=== PATIENT | male | born 1955 | race Caucasian/White ===

== ENCOUNTER → 2019-02-14 12:50 | Outpatient (BNVA) | payer OTHER, SELFPAY | PROVIDERS: PCP Anesthesiology; Visit Provider Anesthesiology | DX: G89.29 Other chronic pain (principal); M54.2 Cervicalgia; M25.511 Pain in right shoulder; M25.512 Pain in left shoulder; M54.5 Low back pain; M79.651 Pain in right thigh; Z79.891 Long term (current) use of opiate analgesic | CPT/HCPCS: 99214 ==

== ENCOUNTER → 2019-02-27 13:22 | Outpatient (BNVA) | payer OTHER, SELFPAY | PROVIDERS: Family Provider Family Medicine; PCP Family Medicine; Visit Provider Nurse Practitioner Psychiatric/Mental Health | DX: F90.2 Attention-deficit hyperactivity disorder, combined type (principal); S06.9X9S Unspecified intracranial injury with loss of consciousness of unspecified duration, sequela; G31.84 Mild cognitive impairment of uncertain or unknown etiology | CPT/HCPCS: 99214; 99215 ==

== ENCOUNTER 2019-02-28 08:00 | Day surgery (SDC) | payer OTHER, SELFPAY ==
--- NOTE | 2019-02-27 11:36 | ECG_ITS ---
Measurements Intervals [place] Rate: 62 P: 56 ME: 189 QRS: -23 QRSD: 113 T: 45 QT: 412 QTc: 421 SINUS RHYTHM WITH FREQUENT SUPRAVENTRICULAR PREMATURE COMPLEXES BORDERLINE LEFT AXIS DEVIATION [QRS AXIS < -20] MODERATE INTRAVENTRICULAR CONDUCTION DELAY [110+ ms QRS DURATION] VOLTAGE CRITERIA FOR LVH [MEETS CRITERIA IN ONE OF: R(aVL), S(V1), R(V5), R(V5/V6) +S(V1)] Compared to ECG 11/23/2018 11:38:59 Intraventricular conduction delay now present Sinus arrhythmia no longer present Electronically Signed On 02-27-2019 20:13:06 SYSTEMS SUPPORT OFFICER by Tushar Campo M.D. [id number]
--- NOTE | 2019-02-27 12:11 | P.ANES_ITS ---
Pre-Anesthetic Assessment Pre-Anesthetic Assessment: Height/Weight: Weight 95.708 kg Preop Diagnosis: CTS on Left, Left ulner nerve entrapment Proposed Proced ure: Operation Date: 02/28/19 12:55 Proposed Procedures p Ulnar Nerve Release(Left) - Michelet Neely MD s Median Nerve Release CTR(Left) - Michelet Neely MD Social: Social History: No alcohol and No tobacco Exam: Pre-Anes Outpt Exam: alert, oriented x 3, clear to auscultation bilaterally and regular rate & rhythm Airway: Submandibular: WNL Cervical ROM: WNL MP: 3 Pulmonary: Pulmonary: COPD and SOB CV/HEM: CV/HEM: Anemia, CAD and HTN Comments: CABG 2017, PTCA 2018. No CP/SOB since : : Chronic renal Insufficiency Hepatic: Hepatic: None reported GI: GI: None reported Metabolic: Metabolic: DM Musc/skel: Musc/skel: Lower Back Pain and OA/DJD Anesthetic Plan: ASA status: III Anesthesia: Anesthesia Evaluation and General Risk of > 500 ml blood loss (7ml/kg in children): No PFSH Anesthesia PFSH: Medical History (Updated 02/26/19 @ 12:59 by Jayne Muhammad RN) Cervical spine pain (Chronic) Chronic low back pain (Chronic) Long-term use of high-risk medication (Chronic) Pain, joint, shoulder, left (Chronic) Social History (Updated 02/14/19 @ 13:22 by Karishma Levine LPN) Smoking and tobacco status: never smoked Second hand smoke exposure: No Smoking risk assessment/counseling performed?: No Alcohol intake: former Caregiver/support person: Yes () Household members: spouse Marital status: Data Anesthesia Cardiac Studies: No Data to Display
[2019-02-28] VITALS (8 sets, daily range): BP systolic 133–167; BP diastolic 67–82; PULSE 66–78; RESP 16–18; TEMP 36.3–36.6; O2SAT 95–100
--- NOTE | 2019-02-28 07:10 | PM.HPUD ---
H&P update H&P Update: DATE OF SURGERY/PROCEDURE: 02/28/19 DATE H&P PERFORMED: 02/11/19 H&P UPDATE INFORMATION: H&P completed within last 30 days, No changes to prior documentation and H&P to be scanned into chart PREOP DIAGNOSIS: Ulnar Nerve entrapment at the elbow/median nerve entrapment at the wrist. PLANNED PROCEDURE: Operation Date: 02/28/19 11:45 Proposed Procedures open release of Ulnar Nerve at the elbow on the Left open release of Median Nerve at left wrist Full H&P Perinent History: Medical/Surgical History: Medical History (Updated 02/27/19 @ 13:52 by Gely Serrato) Attention deficit hyperactivity disorder (ADHD), predominantly hyperactive-impulsive or combined type (Acute) Cervical spine pain (Chronic) Chronic low back pain (Chronic) Long-term use of high-risk medication (Chronic) Mild neurocognitive disorder due to traumatic brain injury (Acute) Pain, joint, shoulder, left (Chronic) Family History: Family History (Updated 02/14/19 @ 13:20 by Karishma Levine LPN) Father Diabetes Mother Diabetes CAD (coronary artery disease) Lung disease Brother Diabetes Sister Diabetes Other Chronic kidney disease (CKD) Hypertension Social History: Social History Smoking and tobacco status: never smoked Second hand smoke exposure: No Smoking risk assessment/counseling performed?: No Alcohol intake: former Caregiver/support person: Yes () Household members: spouse Marital status:
[2019-02-28 08:42] LABS: Glucose Point of Care 94 mg/dL (70-110)
[2019-02-28] MEDS: sodium chloride 0.9% 1,000 ML 30 ML IV (08:47)
[2019-02-28 09:05] LABS: Anion Gap 14.9 (5-19); Blood Urea Nitrogen 41 mg/dL (8-23); Calcium 9.7 mg/Dl (8.8-10.2); Carbon Dioxide 25 mmol/L (22-29); Chloride 101 mmol/L (98-107); Glomerular Filtration Rate 31.9 mL/min (90-130); Glucose 104 mg/dL (74-106); Potassium 3.9 mmol/L (3.5-5.1); Sodium 137 mmol/L (136-145)
--- NOTE | 2019-02-28 10:23 | P.OP_ITS ---
Operative Report Date of procedure: 02/28/19 Pre-op Diagnosis: Ulnar nerve entrapment at the left elbow. Post-op diagnosis: same Procedure Done: Open release of the ulnar nerve at the left elbow, with subcutaneous transposition. Pathology: none sent Surgeon: Michelet Neely Anesthesia: General Estimated blood loss (mL): 10 Condition: stable Disposition: PACU Brief History: The patient is a 63-year-old male with symptomatic, electrodiagnostically confirmed ulnar nerve entrapment at the left elbow and median nerve entrapment at the left wrist. Nerve conduction studies suggested severe entrapment. Symptoms progressed with conservative management. He had previously undergone ulnar nerve decompression at the right elbow, with good results. After review of the diagnostic and treatment options with the risks/potential benefits/rationale for each, the patient requested to proceed with surgical intervention for left ulnar nerve decompression at the elbow and left median nerve release at the wrist under the same anesthesia. Procedure: After routine preoperative evaluation and informed consent were obtained, the patient was taken to the Operating Room and placed under general anesthesia by Anesthesia personnel. He was positioned supine on the operating table with the left arm extended on an arm board. The left upper extremity was scrubbed with Betadine and prepped with DuraPrep from the fingertips to the axilla. A sterile stockinette, sterile towels and sterile drapes were applied. The area about the left elbow was exposed, and the planned curvilinear incision was marked with a sterile skin marker. Ioban surgical barrier was applied. The proposed incision site was infiltrated with 1% Xylocaine with Epinephrine. The skin incision was carried down into the subcutaneous tissues. Dissection was carried down through the superficial fatty layer and, subsequently, through the deeper fatty layer. Self-retaining retractors were placed. The ulnar nerve was identified as it entered and exited the ulnar groove. The thickened ligament overlying the nerve was divided. There was mild epineural fibrosis with adhesions extending along the nerve beyond the ulnar groove. Medial epicondyle prominence was also noted. The nerve was decompressed as it extended into the proximal forearm musculature, and as it exited from the distal arm musculature. The nerve was palpated along its visualized course, with no residual impingement or adhesions identified. Vessel loops were placed about the nerve to facilitate manipulation of the nerve during the decompression, while care was taken to av oid undue traction or stress on the nerve during the procedure. Once the nerve was felt to be well-decompressed, the left upper extremity was manipulated at the elbow through a full range of motion. Nerve displacement from the ulnar groove was noted with flexion at the elbow, and gross tension on the nerve was apparent during full elbow flexion if the nerve was maintained within the ulnar groove. The decision was made to transpose the nerve into the subcutaneous space. The nerve course was transposed into a position anterior to the medial epicondyle within the subcutaneous space. A loose sling of subcutaneous fat was created to maintain the nerve in the desired location. The ligament was closed over the ulnar groove to minimize recurrent entrapment of the nerve at that site. The elbow was placed through a full range of motion, with no tension or displacement of the nerve noted in the transposed location. The site was copiously irrigated with sterile saline and antibiotic irrigation. Hemostasis was obtained with bipolar electrocautery. Closure of the deep dermis was performed with 2-0 Vicryl Plus simple interrupted sutures. Attention was then turned to the left wrist. (See separate operative report for details.) Final closure was performed with 3-0 Vicryl Plus running subcuticular closure following completion of the median nerve decompression at the left wrist. Placement of Steri-Strips and a sterile dressing was also performed at that time. The patient was fit in an elbow splint and a sling prior to transfer onto the Recovery Room cart. He was awakened from general anesthesia without incident. The patient tolerated the procedure well. COMPLICATIONS: There were no known complications. COUNTS: All sponge, needle, and instrument counts were correct at the completion of the procedure.
--- NOTE | 2019-02-28 10:53 | P.OP_ITS ---
Operative Report Date of procedure: 02/28/19 Pre-op Diagnosis: Median nerve entrapment at the left wrist Post-op diagnosis: same Procedure Done: Open release of the median nerve at the left wrist. Pathology: none sent Surgeon: Michelet Neely Anesthesia: General Estimated blood loss: Minimal Complications: None Condition: stable Disposition: PACU Brief History: The patient is a 63-year-old male with symptomatic, electrodiagnostically confirmed median nerve entrapment at the left wrist and ulnar nerve entrapment at the left elbow. Conservative management failed to provide adequate lasting symptom relief. After review of the diagnostic and treatment options with the risks/potential benefits/rationale for each, the patient requested to proceed with open release of the median nerve at the left wrist under the same anesthesia as open release of the ulnar nerve at the left elbow. Procedure: After routine preoperative evaluation and informed consent were obtained, the patient was taken to the Operating Room and positioned supine on the operating table. He was placed under general anesthesia by Anesthesia personnel, and left ulnar nerve decompression at the elbow was performed. (See separate operative report for details.) Attention was then turned to the left wrist. An opening was fashioned in the sterile stockinette over the palmar asp ect of the left hand. The proposed skin incision was marked with a sterile skin marker, beginning near the wrist crease and extending distally along portions of a palmar crease to the mid palm. Ioban surgical barrier was applied. The proposed incision site was infiltrated with 1% Xylocaine with Epinephrine. A skin incision was made with a sharp knife and carried down into the subcutaneous tissues. The thickened transverse carpal ligament was identified and divided over the course of the median nerve in the palm. The nerve was directly visualized as the ligament was divided. Decompression was extended distally until the palmar fat pad was encountered. Proximally, the decompression was extended above the wrist crease utilizing fine Metzenbaum scissors. Decompression was verified to be adequate for a distance of greater than 2 centimeters proximal to the wrist crease. Mild epineural adhesions were addressed with limited epineurolysis. At the completion of the decompression, there was no evidence of residual impingement or tethering of the median nerve at the surgical site. The wound was then copiously irrigated with sterile saline and antibiotic irrigation. Hemostasis was ensured with the bipolar electrocautery. Wound closure was performed as a single layer utilizing 4-0 Nylon in a simple interrupted fashion. Antibiotic ointment was placed along the incision line. A bulky hand dressing was fashioned utilizing Kerlix fluffs, a Kerlix wrap, and an MANISH/elastic bandage. The patient was awakened from general anesthesia, without incident. He was transferred onto the transport cart and taken to the postanesthesia care unit for routine postoperative monitoring and management. The patient tolerated the procedure well. COUNTS: All sponge, needle and instrument counts were correct at the completion of the procedure.
[2019-02-28] MEDS: fentaNYL 50 mcg/mL INJ 2mL 25 MCG IVP (11:37)
--- NOTE | 2019-02-28 12:42 | PM.OP2 ---
 Brief Operative Note: Date of procedure: 02/28/19 Pre-op diagnosis: Ulnar nerve entrapment at left elbow, Median nerve entrapment at left wrist Post-op diagnosis: same Procedure Done: Open release of ulnar nerve at left elbow, with subQ transposition. Open release of median nerve at left wrist. Surgeon: Michelet Neely Estimated blood loss (mL): 10 Complications: None. Post-op Plan: PACU, then home per Ambulatory Surgery protocol Condition: stable Disposition: PACU Coding Level of Care Code Acute Credit Department Manager for Vickey Esquivel
[2019-02-28] MEDS: neomycin-poly-bacitracin oint 28 gm 1 APPLIC TOPICAL (13:13)
--- NOTE | 2019-02-28 14:54 | SUR.PHASEI ---
PT SLEEPY WITH GOOD RESP EFFORT, OCC SHORT EPISODE OF APNEA, PT AWAKES SELF AND CONTINUES WITH NORMAL RESP , PT AWAKES TO VOICE, MONIOTR SR WITH OCC UNIFOCAL PVC. BILAT TEDS SCDS ON IV PATENT
--- NOTE | 2019-02-28 14:57 | SUR.PHASEI ---
PT MORE ALERT , DENEIS PAIN AND NAUSEATED PT ON RA TRIAL. VSS
[2019-02-28] MEDS: HYDROcodone-acetaminophen 10-325 mg Tablet 1 TAB PO (15:28)
== END 2019-02-28 16:15 | disposition home or self-care (01) ==
LOC: OR 03-01 06:03
PROVIDERS: Anesthesiology; Family Provider Family Medicine; PCP Family Medicine; Visit Provider Specialist
PROC: (CPT 64718; principal; 2019-02-28 09:20)
PROC: (CPT 64721; 2019-02-28 09:20)
DX: G56.02 Carpal tunnel syndrome, left upper limb (principal); G56.22 Lesion of ulnar nerve, left upper limb; E78.5 Hyperlipidemia, unspecified; E11.9 Type 2 diabetes mellitus without complications; I10 Essential (primary) hypertension; Z86.73 Personal history of transient ischemic attack (TIA), and cerebral infarction without residual deficits; M06.9 Rheumatoid arthritis, unspecified; Z82.49 Family history of ischemic heart disease and other diseases of the circulatory system; Z83.3 Family history of diabetes mellitus
CPT/HCPCS: 64718; 64721; 12345; 36415; 36416; 80048; 82962; 93005; 96365; 96374; J0690; J2001; J2704; J3010; J3490; J7030

== ENCOUNTER → 2019-04-10 11:16 | Outpatient (BNVA) | payer OTHER, SELFPAY | PROVIDERS: Family Provider Family Medicine; PCP Family Medicine; Visit Provider Nurse Practitioner Psychiatric/Mental Health | DX: F90.2 Attention-deficit hyperactivity disorder, combined type (principal); S06.9X9D Unspecified intracranial injury with loss of consciousness of unspecified duration, subsequent encounter; G31.84 Mild cognitive impairment of uncertain or unknown etiology | CPT/HCPCS: 99214 ==

== ENCOUNTER → 2019-04-11 12:50 | Outpatient (BNVA) | payer OTHER, SELFPAY | PROVIDERS: Family Provider Family Medicine; PCP Family Medicine; Visit Provider Anesthesiology | DX: G89.29 Other chronic pain (principal); M54.2 Cervicalgia; M25.512 Pain in left shoulder; M25.511 Pain in right shoulder; M54.5 Low back pain; Z79.891 Long term (current) use of opiate analgesic | CPT/HCPCS: 99214 ==

== ENCOUNTER → 2019-07-04 08:15 | Outpatient (BNVA) | payer OTHER, SELFPAY | PROVIDERS: Family Provider Family Medicine; PCP Family Medicine; Visit Provider Nurse Practitioner Psychiatric/Mental Health | DX: F90.2 Attention-deficit hyperactivity disorder, combined type (principal); S06.9X9D Unspecified intracranial injury with loss of consciousness of unspecified duration, subsequent encounter; G31.84 Mild cognitive impairment of uncertain or unknown etiology | CPT/HCPCS: 99214 ==

== ENCOUNTER → 2019-07-15 09:31 | Outpatient (BNVA) | payer OTHER, SELFPAY | PROVIDERS: Family Provider Family Medicine; PCP Family Medicine; Referring Provider Family Medicine; Visit Provider Specialist | DX: M25.512 Pain in left shoulder (principal) | CPT/HCPCS: 73030 ==

== ENCOUNTER 2019-07-23 07:44 | Outpatient (CLI) | payer OTHER, SELFPAY ==
--- NOTE | 2019-07-23 08:00 | MR_ITS ---
WS: [id number] MRI LEFT SHOULDER HISTORY: M25.512 Pain in left shoulder COMPARISON: 07/15/2019 TECHNIQUE: Multiplanar sequences of the shoulder joint are submitted. Advanced degenerative changes at the AC joint. Bone and soft tissue hypertrophy. 6 mm osteophyte from the distal inferior clavicle with mild encroachment upon the supraspinatus muscle. There is an addit ional osteophyte from the distal undersurface of the acromion measuring 4 mm with encroachment on the anterior supraspinatus tendon. Small amount of fluid in the subacromial and subdeltoid bursa. Insertion site tear involving the distal supraspinatus tendon. There is additional marked tendinopath y over the distal supraspinatus. There is associated partial tear along the articular surface of the distal supraspinatus tendon. Partial tear involving the articular surface of the distal subscapularis tendon. This tear is very close to the insertion site of the subscapularis tendon. Abnormal biceps t endon resides within the bicipital groove. There is increased signal and thinning of the tendon. Larg e osteophytes at the humeral head encroach upon the biceps tendon and the subscapularis tendon. No mu scle edema. There is mild atrophy of the supraspinatus. No labral tears are appreciated. Osteophytes from the glenoid causing mild narrowing and degenerative changes at the glenohumeral joint. MR/MR shoulder LT wo con* [id number] IMPRESSION: 1. Severe AC joint arthritis with osteophyte encroachment upon the supraspinat us muscle. Osteophytes from the distal undersurface of the clavicle and the dis art undersurface of the acromion. 2. Tendinopathy in the distal supraspinatus and subscapularis tendons. 3. Insertion site tear supraspinatus tendon with an adjacent partial articular surface tear. 4. Partial tear articular surface distal subscapularis tendon. 5. Abnormal signal in the biceps tendon. Suspect partial tear just proximal to the bicipital groove. 6. Osteophytes from the humeral head encroaching upon the biceps tendon in the subscapularis tendon. 7. Glenohumeral joint arthritis.
== END 2019-07-23 07:45 | disposition home or self-care (01) ==
LOC: RADSHAW 07:47
PROVIDERS: PCP Family Medicine; Visit Provider Specialist
DX: M25.512 Pain in left shoulder (principal); M25.712 Osteophyte, left shoulder; M19.012 Primary osteoarthritis, left shoulder; S46.912A Strain of unspecified muscle, fascia and tendon at shoulder and upper arm level, left arm, initial encounter; X58.XXXA Exposure to other specified factors, initial encounter
CPT/HCPCS: 73221

== ENCOUNTER → 2019-08-14 07:42 | Outpatient (BNVA) | payer OTHER, SELFPAY | PROVIDERS: PCP Family Medicine; Visit Provider Nurse Practitioner Psychiatric/Mental Health | DX: F90.2 Attention-deficit hyperactivity disorder, combined type (principal); S06.9X9D Unspecified intracranial injury with loss of consciousness of unspecified duration, subsequent encounter; G31.84 Mild cognitive impairment of uncertain or unknown etiology | CPT/HCPCS: 99214 ==

== ENCOUNTER 2019-08-21 14:01 | Outpatient (RCR) | payer OTHER, SELFPAY | END 2019-09-13 23:59 | disposition home or self-care (01) | LOC: SPT 14:01 | PROVIDERS: PCP Family Medicine; Referring Provider Specialist; Visit Provider Specialist | DX: M19.012 Primary osteoarthritis, left shoulder (principal) | CPT/HCPCS: 97110; 97162 ==

== ENCOUNTER 2019-08-29 09:01 | Outpatient (CLI) | payer OTHER, SELFPAY ==
--- NOTE | 2019-08-29 09:07 | MR_ITS ---
WS: [id number] MRI HEAD WITH CONTRAST TECHNIQUE: Sagittal T1, T2 axial, T2 axial FLAIR, axial susceptibility weighted imaging, axial diffus ion weighted images, and coronal T2 images were obtained. Pre and post-T1 axial and post T1 coronal i mages. ADC and FSPGR images. CLINICAL INFORMATION: TBI COMPARISON: None. FINDINGS: No evidence restricted diffusion to suggest acute ischemia. Ventricular system and basal cisterns are patent. Mild small vessel changes. Moderate parenchymal volume loss. Normal posterior fossa. Normal vascular flow voids at the skull base. No extra-axial fluid collections. No evidence of mass or mass effect. No abnormal gadolinium enhancement. No enhancing intracranial lesions. Normal optic chiasm and pituit jeff infundibulum. Normal dural venous sinuses. Moderate symmetric atrophy involving the temporal lobe s and hippocampal formations. Paranasal sinuses and mastoid air cells well aerated. MR/MR head wo/w con [id number] IMPRESSION: 1. No evidence of restricted diffusion to suggest acute ischemia. 2. Mild small vessel changes with moderate parenchymal volume loss. 3. Moderate symmetric atrophy involving the temporal lobes and hippocampal for mations. 4. No abnormal gadolinium enhancement. 5. No hemosiderin on susceptibly weighted images.
[2019-08-29 09:51] LABS: Blood Urea Nitrogen 29 mg/dL (8-23); Glomerular Filtration Rate 40.5 mL/min (90-130)
== END 2019-08-29 09:02 | disposition home or self-care (01) ==
LOC: RADSHAW 09:03
PROVIDERS: PCP Family Medicine; Visit Provider Family Medicine
DX: S06.9X0A Unspecified intracranial injury without loss of consciousness, initial encounter (principal); X58.XXXA Exposure to other specified factors, initial encounter; G31.9 Degenerative disease of nervous system, unspecified
CPT/HCPCS: 70553; 82565; 84520; A9579

== ENCOUNTER 2019-09-14 06:00 | Outpatient (RCR) | payer OTHER, SELFPAY | END 2019-10-14 23:59 | disposition home or self-care (01) | LOC: SPT 06:00 | PROVIDERS: PCP Family Medicine; Referring Provider Specialist; Visit Provider Specialist | DX: M19.012 Primary osteoarthritis, left shoulder (principal) | CPT/HCPCS: 97110 ==

== ENCOUNTER → 2019-09-18 10:11 | Outpatient (BNVA) | payer OTHER, SELFPAY | PROVIDERS: PCP Family Medicine; Visit Provider Anesthesiology | DX: G89.29 Other chronic pain (principal); M54.42 Lumbago with sciatica, left side; M54.41 Lumbago with sciatica, right side; M54.2 Cervicalgia; M19.112 Post-traumatic osteoarthritis, left shoulder; Z79.891 Long term (current) use of opiate analgesic | CPT/HCPCS: 99214 ==

== ENCOUNTER → 2019-10-09 08:34 | Outpatient (BNVA) | payer OTHER, SELFPAY | PROVIDERS: PCP Family Medicine; Visit Provider Nurse Practitioner Psychiatric/Mental Health | DX: F90.2 Attention-deficit hyperactivity disorder, combined type (principal); S06.9X9D Unspecified intracranial injury with loss of consciousness of unspecified duration, subsequent encounter; G31.84 Mild cognitive impairment of uncertain or unknown etiology | CPT/HCPCS: 99214 ==

== ENCOUNTER → 2019-10-23 10:27 | Outpatient (BNVA) | payer OTHER, SELFPAY | PROVIDERS: PCP Family Medicine; Referring Provider Family Medicine; Visit Provider Specialist | DX: I50.22 Chronic systolic (congestive) heart failure (principal); S06.9X9D Unspecified intracranial injury with loss of consciousness of unspecified duration, subsequent encounter; X58.XXXD Exposure to other specified factors, subsequent encounter; F90.2 Attention-deficit hyperactivity disorder, combined type; G43.711 Chronic migraine without aura, intractable, with status migrainosus | CPT/HCPCS: 96116; 99205 ==

== ENCOUNTER → 2019-11-06 07:40 | Outpatient (BNVA) | payer OTHER, SELFPAY | PROVIDERS: PCP Family Medicine; Visit Provider Psychiatry & Neurology Psychiatry | DX: F90.2 Attention-deficit hyperactivity disorder, combined type (principal); S06.9X9D Unspecified intracranial injury with loss of consciousness of unspecified duration, subsequent encounter; G31.84 Mild cognitive impairment of uncertain or unknown etiology | CPT/HCPCS: 99214 ==

== ENCOUNTER → 2019-11-20 10:40 | Outpatient (BNVA) | payer OTHER, SELFPAY | PROVIDERS: PCP Family Medicine; Visit Provider Anesthesiology | DX: G89.29 Other chronic pain (principal); M54.5 Low back pain; M54.2 Cervicalgia; M25.512 Pain in left shoulder; Z79.891 Long term (current) use of opiate analgesic | CPT/HCPCS: 99214 ==

== ENCOUNTER → 2019-12-11 12:47 | Outpatient (BNVA) | payer OTHER, SELFPAY | PROVIDERS: PCP Family Medicine; Visit Provider Psychiatry & Neurology Psychiatry | DX: F33.1 Major depressive disorder, recurrent, moderate (principal); G31.84 Mild cognitive impairment of uncertain or unknown etiology; S06.9X9D Unspecified intracranial injury with loss of consciousness of unspecified duration, subsequent encounter; F41.1 Generalized anxiety disorder | CPT/HCPCS: 99213 ==

== ENCOUNTER → 2020-01-13 12:07 | Outpatient (BNVA) | payer OTHER, SELFPAY | PROVIDERS: PCP Family Medicine; Visit Provider Internal Medicine Cardiovascular Disease | DX: I50.43 Acute on chronic combined systolic (congestive) and diastolic (congestive) heart failure (principal); R06.02 Shortness of breath | CPT/HCPCS: 80048; 83880 ==

== ENCOUNTER → 2020-01-15 10:14 | Outpatient (BNVA) | payer OTHER, SELFPAY | PROVIDERS: PCP Family Medicine; Visit Provider Psychiatry & Neurology Psychiatry | DX: F33.1 Major depressive disorder, recurrent, moderate; S06.9X9S Unspecified intracranial injury with loss of consciousness of unspecified duration, sequela; V89.2XXS Person injured in unspecified motor-vehicle accident, traffic, sequela; F90.2 Attention-deficit hyperactivity disorder, combined type | CPT/HCPCS: 99213; 99214 ==

== ENCOUNTER → 2020-02-05 10:45 | Outpatient (BNVA) | payer OTHER, SELFPAY | PROVIDERS: PCP Family Medicine; Visit Provider Anesthesiology | DX: M54.5 Low back pain (principal); G89.29 Other chronic pain; M54.2 Cervicalgia; Z79.899 Other long term (current) drug therapy; M25.512 Pain in left shoulder; Z79.891 Long term (current) use of opiate analgesic | CPT/HCPCS: 99214 ==

== ENCOUNTER → 2020-04-22 12:46 | Outpatient (BNVA) | payer OTHER, SELFPAY | PROVIDERS: PCP Family Medicine; Visit Provider Nurse Practitioner | DX: G89.29 Other chronic pain (principal); M54.5 Low back pain; M19.112 Post-traumatic osteoarthritis, left shoulder; M54.2 Cervicalgia; S06.9X9D Unspecified intracranial injury with loss of consciousness of unspecified duration, subsequent encounter; X58.XXXD Exposure to other specified factors, subsequent encounter; Z79.899 Other long term (current) drug therapy; Z79.891 Long term (current) use of opiate analgesic | CPT/HCPCS: 99215 ==

== ENCOUNTER → 2020-05-20 14:23 | Outpatient (BNVA) | payer OTHER, SELFPAY | PROVIDERS: PCP Family Medicine; Visit Provider Nurse Practitioner | DX: G89.29 Other chronic pain (principal); M54.5 Low back pain; M54.2 Cervicalgia; M19.112 Post-traumatic osteoarthritis, left shoulder | CPT/HCPCS: 99213; 99214 ==

== ENCOUNTER → 2020-06-04 09:45 | Outpatient (BNVA) | payer OTHER, SELFPAY | PROVIDERS: PCP Family Medicine; Visit Provider Anesthesiology | DX: G89.29 Other chronic pain (principal); M25.512 Pain in left shoulder; Z79.891 Long term (current) use of opiate analgesic | CPT/HCPCS: 20610; 77002; J1030; J3490 ==

== ENCOUNTER → 2020-06-17 13:33 | Outpatient (BNVA) | payer OTHER, SELFPAY | PROVIDERS: PCP Family Medicine; Visit Provider Specialist | DX: G31.84 Mild cognitive impairment of uncertain or unknown etiology (principal); R55 Syncope and collapse; I50.22 Chronic systolic (congestive) heart failure; F33.1 Major depressive disorder, recurrent, moderate; F60.5 Obsessive-compulsive personality disorder; G43.711 Chronic migraine without aura, intractable, with status migrainosus | CPT/HCPCS: 96116; 99215 ==

== ENCOUNTER → 2020-07-16 12:38 | Outpatient (BNVA) | payer OTHER, SELFPAY | PROVIDERS: PCP Family Medicine; Visit Provider Nurse Practitioner | DX: G89.29 Other chronic pain (principal); M54.5 Low back pain; M54.2 Cervicalgia; G43.711 Chronic migraine without aura, intractable, with status migrainosus; G31.84 Mild cognitive impairment of uncertain or unknown etiology; M19.112 Post-traumatic osteoarthritis, left shoulder; Z79.891 Long term (current) use of opiate analgesic | CPT/HCPCS: 99215 ==

== ENCOUNTER 2020-08-07 21:23 | Emergency (ER) | payer OTHER, SELFPAY ==
[2020-08-07 21:58] VITALS: BP 134/73; PULSE 50; RESP 16; TEMP 36.6; O2SAT 99; BMI 28.7
--- NOTE | 2020-08-07 23:08 | ECG_ITS ---
[facility] Test Date: 2020-08-07 Pat Name: Santy Murphy Department: Room: Gender: Male Buccaro: : 1955 Requested By: Malena Latif Order Number: [id number] Vandana MD: April Andres M.D. Measurements Intervals [place] Rate: 55 P: 68 PA: 201 QRS: -25 QRSD: 106 T: 17 QT: 427 QTc: 409 Interpretive Statements SINUS BRADYCARDIA WITH OCCASIONAL VENTRICULAR PREMATURE COMPLEXES WITH OCCASIONAL SUPRAVENTRICULAR PREMATURE COMPLEXES BORDERLINE LEFT AXIS DEVIATION [QRS AXIS < -20] VOLTAGE CRITERIA FOR LVH [MEETS CRITERIA IN ONE OF: R(aVL), S(V1), R(V5), R(V5/V6)+S(V1)] INTERPRETATION BASED ON A DEFAULT AGE OF 40 YEARS Compared to ECG 02/27/2019 11:48:56 Ventricular premature complex(es) now present Sinus rhythm no longer present Intraventricular conduction delay no longer present Electronically Signed On 08-09-2020 9:32:41 CDT by April Andres M.D. [id number]
--- NOTE | 2020-08-07 23:08 | XRR_ITS ---
PROCEDURE INFORMATION: Exam: XR Chest Exam date and time: 08/07/2020 11:08 PM Age: 65 years old Clinical indication: Other: Chest pain and low back pain; Prior surgery; Surgery date: 6+ months; Surgery type: Quadruple bypass; Patient HX: C/O chest pain and trouble breathing; Fatigue. C/O low back pain; Additional info: SOB TECHNIQUE: Imaging protocol: XR of the chest. Views: 1 view. COMPARISON: CR Chest 1 [place] [id number] 11/16/2017 7:17 PM FINDINGS: Lungs: Emphysematous changes suspected. Pleural spaces: Unremarkable. No pleural effusion. No pneumothorax. Heart/Mediastinum: Cardiomegaly. Bones/joints: Sternotomy wires. Chronic left posterior 5th rib fracture suspected. XR/XR chest 1V portable [id number] IMPRESSION: 1. Negative for infiltrate. 2. Sternotomy wires. 3. Cardiomegaly. 4. Emphysematous changes suspected. 5. Chronic left posterior 5th rib fracture suspected.
--- NOTE | 2020-08-07 23:18 | PC.NURSE ---
EKG taken and given to Malena Latif
--- NOTE | 2020-08-07 23:44 | W.ED.SKABFB ---
HPI - Skin/Abscess/Foreign Bdy General: Chief complaint: Skin/Abscess/Foreign Body Stated complaint: burst abcess, fungal infection Time Seen by Provider: 08/07/20 22:41 Source: patient and family () Mode of arrival: ambulatory Limitations: no limitations History of Present Illness: HPI narrative: Patient is a 65-year-old male with history of HTN, CHF, CAD, CKD, ADHD, TBI, COPD, DM, chronic back pain bradycardia, and hyperlipidemia here along with his for an initial complaint of new skin lesions. 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 Patient states he received several cuts/scrapes to his arms and forearms that he states have turned into sores. He states they first formed fluid-filled papules that patient then poked with a needle and drained. He states when lesions first started he felt very fatigued but this has improved. states she googled lesions and is concerned for sporotrichosis. Patient during history taking is very pleasant but very loquacious. He is often tangential with his speech thus difficult to follow and pin down a complaint. At some point he mentioned being treated at [facility] recently. When asked about this he states he went there 2 days ago for similar complaints (although later states he had chest pains at the time too) but was unsatisfied with their care and left. I tried to redirect patient several times and ask him about his chest pain and essentially he tells me he always has pain and that he is not really concerned with his discomfort now. He states he has felt a little short of breath. Does have a history of COPD-does not wear oxygen. He states he did receive first COVID vaccine 2 days ago. complaint: lesion Onset (ago): week(s) Tetanus up to date: yes Location: [facility], E, L hand, R hand and LLE Relieving factors: none Exacerbating factors: none Context: other (exposure to genny lopez) Associated symptoms: Deny chills, fever(s), nausea or vomiting Treatments prior to arrival: none Review of Systems Const: Reports: fatigue (resolved ); Denies: fever(s), chills, body aches, change in appetite, change in weight, malaise or night sweats Eyes: Denies: change in vision, blurry vision, photophobia, floaters or seeing flashes ENMT: Denies: throat pain or odynophagia Card: Reports: chest pain, irregular heart rhythm (chronic) and dyspnea on exertion (chronic); Denies: palpitations, edema, lightheadedness, syncope, pre-syncope, leg pain with exertion or acrocyanosis Resp: Reports: dyspnea and productive cough (chronic); Denies: non-productive cough, wheezing, stridor, hemoptysis or chest congestion GI: Denies: abdominal pain, nausea, vomiting or diarrhea Musc: Denies: neck pain, back pain, extremity pain, extremity swelling, joint pain or joint swelling Skin/Breast: Reports: sores Neuro: Denies: headache(s), numbness in extremities, weakness in extremities, sensory changes or dizziness PFSH ED PFSH: Medical History Acute on chronic combined systolic and diastolic CHF, NYHA class 2 Atherosclerosis of coronary artery of [place] heart without angina pectoris Attention deficit hyperactivity disorder (ADHD), predominantly hyperactive-impulsive or combined type Benign essential hypertension with target blood pressure below 140/90 CAD (coronary artery disease) Cervical spine pain CHF (congestive heart failure) Chronic low back pain Chronic systolic heart failure COPD (chronic obstructive pulmonary disease) Dyslipidemia Dyslipidemia (high LDL; low HDL) Dysrhythmias Encounter for long-term opiate analgesic use Hypertension Long-term use of high-risk medication Mild neurocognitive disorder due to traumatic brain injury Near syncope Pain, joint, shoulder, left Traumatic brain injury Ventricular arrhythmia Surgical History History of carpal tunnel release Left, 02/28/2019 S/P CABG (coronary artery bypass graft) S/P decompression of ulnar nerve at elbow 11/26/18 Dr. Neely-right elbow 02/28/2019 - left elbow S/P hemorrhoidectomy S/P inguinal hernia repair S/P PTCA (percutaneous transluminal coronary angioplasty) S/P tonsillectomy and adenoidectomy Status post lumbar laminectomy Family History Father Diabetes Mother Diabetes CAD (coronary artery disease) Lung disease Brother Diabetes Sister Diabetes Grandmother Dementia Other Chronic kidney disease (CKD) Hypertension Denies family history of Clotting disorder Suicide Anesthesia complication Bleeding disorder Cancer Stroke Social History Smoking and tobacco status: never smoked Second hand smoke exposure: No Alcohol intake: former Caregiver/support person: Yes Marital status: History of recent travel: No Physical Exam Const: COMMON NORMALS: no acute distress, patient oriented x3, no limitations, healthy appearing and alert GENERAL APPEARANCE: cooperative ORIENTATION/CONSCIOUSNESS: Yes awake, Yes oriented to person, Yes oriented to place and Yes oriented to time HENMT: COMMON NORMALS: normocephalic and atraumatic HEAD & SCALP: normocephalic and atraumatic Resp: COMMON NORMALS: normal respiratory effort and clear to auscultation bilaterally AUSCULTATION: clear to auscultation bilaterally Cardio: COMMON NORMALS: regular rhythm RATE: bradycardic RHYTHM: regular rhythm GI: COMMON NORMALS: Normal to inspection, nondistended, normoactive bowel sounds present, Soft to palpation, non-tender, No hepatosplenomegaly present and no masses PALPATION: Yes Soft to palpation and Yes No hepatosplenomegaly present Extremity: COMMON NORMALS: no clubbing, cyanosis or edema and no pedal edema Neuro: CHRIS COMA SCALE: document GCS findings Chris coma scale eye opening: Spontaneous [place] coma scale verbal response: Orientated Chris coma scale motor response: Obey commands Chris coma scale total score: 15 COMMON NORMALS: patient oriented x3, moves all extremities, no focal motor deficits and no sensory deficits noted SENSORIUM/ORIENTATION: Yes alert, Yes oriented to person, Yes oriented to place and Yes oriented to time Skin: NARRATIVE SKIN EXAM: pt has several (probably a total of 15-20) small (2-3mm) erythematous some scabbed papules to bilateral dorsal hands/forearms and 4 lesions to L lower medial leg; he states these were fluid filled at one point but took a needle to all of them and popped them; none appear ulcerated; they do not follow lymphatic chain; there are only a few that appear nodular Course Vital Signs: Vital signs: Vital Signs Temperature 98 F 08/07/20 21:58 Pulse Rate 49 L 08/08/20 01:27 Respiratory Rate 17 08/08/20 01:27 Blood Pressure 127/41 08/08/20 01:27 Pulse Oximetry 98 08/08/20 01:27 MDM - Skin/Abscess/Foreign Bdy MDM Narrative: Medical decision making narrative: Patient's main complaint today is his skin lesions that the is concerned could be sporotrichosis. Clinically this is not lymphocutaneous sporotrichosis which is the most common form. I think pulmonary or disseminated sporotrichosis would be very unlikely but I guess theoretically still possible-he does have appropriate risk factors of COPD/DM. His CXR does not look suspicious for pulmonary involvement. I do not feel comfortable placing patient on treatment for sporotrichosis as this is usually complicated and requires weeks/months of therapy sometimes. I think patient might benefit from seeing Dr. Ruby our infectious disease specialist. I have spoken to Dr. Bergeron who agrees with this plan. Labs were obtained from patient's recent visit to [facility]. His troponin on that visit was 41 which is the same as it was today. EKG with no changes from previous. Patient has chronic kidney disease. BUN/CR at [facility] was 52/2.24. Today it is 52/2.0. Seems to be about patient's baseline given our previous labs as well. Glucose over 400 but patient admittedly has not been taking his insulin. Will place info with CM. Return to ED precautions given. Lab Data: Labs: Lab Results 08/07/20 08/07/20 08/07/20 Range/Units 22:42 22:42 22:42 WBC 6.2 (4.0-10.0) 10^3/ uL RBC 4.83 (4.1-5.3) 10^6/u L Hgb 14.8 (11.7-16.6) g/dL Hct 47.0 (42.0-52.0) % MCV 97.3 H (80-94) fL MCH 30.6 (28.0-34.0) pg MCHC 31.5 (30.0-36.0) g/dL RDW 13.9 (12.1-15.1) % Plt Count 187 (130-400) 10^3/c mm MPV 11.1 H (7.4-10.4) fL Neut % (Auto) 55.2 % Lymph % (Auto) 26.5 % Finney % (Auto) 12.7 % Eos % (Auto) 4.2 % Baso % (Auto) 1.1 % Neut # (Auto) 3.44 (1.8-7.7) 10^3/u L Lymph # (Auto) 1.7 (0.8-4.8) 10^3/u L Finney # (Auto) 0.8 (0.2-0.9) 10^3/u L Eos # (Auto) 0.3 (0.0-0.8) 10^3/u L Baso # (Auto) 0.1 (0.0-0.1) 10^3/u L Nucleated RBC % (a uto) 0 % Nucleated RBCs # 0.0 /100WBC Sodium 132 L (136-145) mmol/L Potassium 4.9 (3.5-5.1) mmol/L Chloride 99 (98-107) mmol/L Carbon Dioxide 23 (22-29) mmol/L Anion Gap 14.9 (5-19) BUN 52 H (8-23) mg/dL Creatinine 2.0 H (0.7-1.2) mg/dL GFR Calculation 33.5 L (90-130) mL/min Glucose 413 H (65-115) mg/dL Calculated Osmolal ity 306 H (285-295) mOsm/k g Calcium 9.7 (8.5-10.5) mg/dL Total Bilirubin 0.4 (0.15-1.2) mg/dL AST 32 (0-40) U/L ALT 43 H (0-41) U/L Alkaline Phosphata se 122 (40-130) IU/L Troponin T Baselin e 41 H (0-15) ng/L Total Protein 6.8 (6.6-8.7) g/dL Albumin 3.9 (3.5-5.2) g/dL Globulin 2.9 (1.3-4.6) g/dL Imaging Data^: CXR: Radiologist's impression: [address] [address] XRay Report Signed Patient: Santy Murphy Unit #: [id number] : 1955 Age/Sex: 65 / M ADM Date: 08/07/20 Loc: ER Room/Bed: Attending Dr: Ordering Provider/Ordering MD: Malena Latif Date of Service: 08/07/20 Procedure(s): XR chest 1V portable [id number] Accession Number(s): [id number] Report Number: [id number] PROCEDURE INFORMATION: Exam: XR Chest Exam date and time: 08/07/2020 11:08 PM Age: 65 years old Clinical indication: Other: Chest pain and low back pain; Prior surgery; Surgery date: 6+ months; Surgery type: Quadruple bypass; Patient HX: C/O chest pain and trouble breathing; Fatigue. C/O low back pain; Additional info: SOB TECHNIQUE: Imaging protocol: XR of the chest. Views: 1 view. COMPARISON: CR Chest 1 [place] [id number] 11/16/2017 7:17 PM FINDINGS: Lungs: Emphysematous changes suspected. Pleural spaces: Unremarkable. No pleural effusion. No pneumothorax. Heart/Mediastinum: Cardiomegaly. Bones/joints: Sternotomy wires. Chronic left posterior 5th rib fracture suspected. XR/XR chest 1V portable [id number] IMPRESSION: 1. Negative for infiltrate. 2. Sternotomy wires. 3. Cardiomegaly. 4. Emphysematous changes suspected. 5. Chronic left posterior 5th rib fracture suspected. Dictated By: Frantz Henriquez MD Signed By: Frantz Henriquez MD Signed Date/Time: 08/08/2026 DD/ EKG Data^: EKG 1: EKG Interpretation Date: 08/07/20 EKG interpretation time: 23:23 Interpretation: Sinus bradycardia with occasional PVC Rate [address] elevation or depression changes noted No acute changes when compared to EKG performed on 02/2019 Discharge Plan Discharge Patient Disposition: Home Clinical Impression: Skin lesion Condition: Stable Prescriptions: No Action insulin aspart U-100 [Novolog U-100 Insulin aspart] 100 unit/mL solution 10 unit SUBCUT .ss RF: 0 tramadol 50 mg tablet 100 mg PO Q8H PRN (Reason: pain) 30 Days Qty: 180 RF: 0 amphetamine sulfate 20 mg tablet,disintegrating 20 mg PO DAILY RF: 0 cholecalciferol (vitamin D3) 10,000 unit tablet 3,000 unit PO DAILY RF: 0 omega-3 fatty acids 1,000 mg capsule 1,000 mg PO BID RF: 0 Ultra CoQ10 75 mg capsule 100 mg PO DAILY RF: 0 clopidogrel 75 mg tablet 75 mg PO ONCE RF: 0 Hold Instructions: Resume on 03/02/19. All Day Allergy (cetirizine) 10 mg capsule 10 mg PO DAILY PRN (Reason: Allergic Reaction) RF: 0 allopurinol 300 mg tablet 300 mg PO DAILY RF: 0 aspirin 81 mg tablet,delayed release (DR/EC) 81 mg PO DAILY RF: 0 atorvastatin 20 mg tablet 20 mg PO DAILY RF: 0 ferrous sulfate [FeroSul] 325 mg (65 mg iron) tablet 325 mg PO DAILY RF: 0 fluoxetine 20 mg capsule 20 mg PO DAILY Qty: 90 RF: 0 donepezil 10 mg tablet 10 mg PO DAILY Qty: 30 RF: 5 metoprolol tartrate 50 mg tablet See Rx Instructions .ROUTE .COMPLEX Qty: 90 RF: 3 diclofenac sodium [Voltaren] 1 % gel 4 g topical QID Qty: 400 RF: 1 gabapentin 100 mg capsule 100 mg PO TID 90 Days Qty: 270 RF: 1 hydrocodone-acetaminophen 10-325 mg tablet 1 tab PO Q8H PRN (Reason: pain) 30 Days Qty: 90 RF: 0 chlorthalidone 25 mg Tablet 25 mg PO DAILY RF: 0 Lantus Solostar U-100 Insulin liquid 27 units SUBCUT DAILY RF: 0 Discharge Orders: Discharge ED (Routine); Ordered 08/08/20 Ordered By: Malena Latif Referrals: Crystal Miller MD [Primary Care Provider] - Jennifer Ruby MD [Hospitalist] - Patient Instructions: Opioid Safety Coding Level of Care Code ED Controller Operations And Hr Manager for Chg Fwd Exam Detailed
[2020-08-08 00:02] LABS: Basophils # 0.1 10^3/uL (0.0-0.1); Basophils % 1.1 %; Eosinophils # 0.3 10^3/uL (0.0-0.8); Eosinophils % 4.2 %; Hemoglobin 14.8 g/dL (11.7-16.6); Lymphocytes # 1.7 10^3/uL (0.8-4.8); Lymphocytes % 26.5 %; Mean Corpuscular HGB Conc 31.5 g/dL (30.0-36.0); Mean Corpuscular Hemoglobin 30.6 pg (28.0-34.0); Mean Corpuscular Volume 97.3 fL (80-94); Mean Platelet Volume 11.1 fL (7.4-10.4); Monocytes # 0.8 10^3/uL (0.2-0.9); Monocytes % 12.7 %; Neutrophils # 3.44 10^3/uL (1.8-7.7); Neutrophils % 55.2 %; Nucleated Red Blood Cells % 0 %; Platelet Count 187 10^3/cmm (130-400); Red Blood Count 4.83 10^6/uL (4.1-5.3); Red Cell Distribution Width 13.9 % (12.1-15.1); White Blood Count 6.2 10^3/uL (4.0-10.0)
[2020-08-08 00:14] LABS: Troponin(5th) Baseline 41 ng/L (0-15)
[2020-08-08 00:15] LABS: Alanine Aminotransferase 43 U/L (0-41); Albumin Level 3.9 g/dL (3.5-5.2); Alkaline Phosphatase 122 IU/L (40-130); Aspartate Amino Transferase 32 U/L (0-40); Blood Urea Nitrogen 52 mg/dL (8-23); Calcium 9.7 mg/dL (8.5-10.5); Carbon Dioxide 23 mmol/L (22-29); Chloride 99 mmol/L (98-107); Globulin 2.9 g/dL (1.3-4.6); Glomerular Filtration Rate 33.5 mL/min (90-130); Glucose 413 mg/dL (65-115); Osmolality Calculated 306 mOsm/kg (285-295); Sodium 132 mmol/L (136-145); Total Bilirubin 0.4 mg/dL (0.15-1.2); Total Protein 6.8 g/dL (6.6-8.7)
[2020-08-08 00:20] LABS: Anion Gap 14.9 (5-19); Potassium 4.9 mmol/L (3.5-5.1)
[2020-08-08 01:27] VITALS: BP 127/41; PULSE 49; RESP 17; O2SAT 98
--- NOTE | 2020-08-10 09:24 | PC.SOCIAL ---
Addendum entered by Augusta Pardo 08/26/20 11:32: telephonic nurse case manager was emailed by Shira from general surgery stating that patients information was reviewed by Dr. Ruby, and was told that patient would need to follow up with dermatology. telephonic nurse case manager called the dermatology clinic, made the referral. telephonic nurse case manager was told that Marie would be back in the morning and the information would be given to her to schedule the appointment. Patient has [employer] insurance, case resolution specialist emailed patients information to Fatuma with [facility], letting her know that patient was seen in the ER and that patient will need to be seen by dermatology instead of infectious disease. Clinic will call patient with appointment information, case resolution specialist will call for appointment information. Original Note: Sent email to [facility] with referral by Malena COLLINS regarding Sporotrichosis to see Dr Ruby. They will schedule patient.
--- NOTE | 2020-08-28 14:58 | DCPLANNER ---
Patient has a follow up appointment scheduled for Tuesday October 06, 2020 at 1:[address] Butler. Clinic will call patient with appointment information.
--- NOTE | 2020-10-08 11:27 | DCPLANNER ---
Patient had a follow up appointment scheduled for 10.06.20 with dermatology - patient did attend appointment.
== END 2020-08-08 01:27 | disposition home or self-care (01) ==
PROVIDERS: Emergency Provider Physician Assistant; PCP Family Medicine
DX: L98.9 Disorder of the skin and subcutaneous tissue, unspecified (principal); Z79.02 Long term (current) use of antithrombotics/antiplatelets; Z79.82 Long term (current) use of aspirin; Z79.4 Long term (current) use of insulin; I25.10 Atherosclerotic heart disease of native coronary artery without angina pectoris; I11.0 Hypertensive heart disease with heart failure; I50.43 Acute on chronic combined systolic (congestive) and diastolic (congestive) heart failure; J44.9 Chronic obstructive pulmonary disease, unspecified; E78.5 Hyperlipidemia, unspecified; Z95.1 Presence of aortocoronary bypass graft
CPT/HCPCS: 71045; 80053; 84484; 85025; 93005; 99283

== ENCOUNTER → 2020-09-10 12:53 | Outpatient (BNVA) | payer OTHER, SELFPAY | PROVIDERS: PCP Family Medicine; Visit Provider Nurse Practitioner | DX: G89.29 Other chronic pain (principal); M54.5 Low back pain; M25.512 Pain in left shoulder; M54.2 Cervicalgia; Z79.891 Long term (current) use of opiate analgesic; Z87.891 Personal history of nicotine dependence | CPT/HCPCS: 99214 ==

== ENCOUNTER → 2020-11-17 13:18 | Outpatient (BNVA) | payer OTHER, SELFPAY | PROVIDERS: PCP Family Medicine; Referring Provider Family Medicine; Visit Provider Internal Medicine | DX: E11.65 Type 2 diabetes mellitus with hyperglycemia (principal); E11.59 Type 2 diabetes mellitus with other circulatory complications; E11.40 Type 2 diabetes mellitus with diabetic neuropathy, unspecified; E11.22 Type 2 diabetes mellitus with diabetic chronic kidney disease; N18.30 Chronic kidney disease, stage 3 unspecified; G31.84 Mild cognitive impairment of uncertain or unknown etiology; E16.0 Drug-induced hypoglycemia without coma; F90.2 Attention-deficit hyperactivity disorder, combined type; I25.10 Atherosclerotic heart disease of native coronary artery without angina pectoris; T38.3X5A Adverse effect of insulin and oral hypoglycemic [antidiabetic] drugs, initial encounter; Z79.4 Long term (current) use of insulin | CPT/HCPCS: 99205 ==

== ENCOUNTER → 2020-11-19 13:04 | Outpatient (BNVA) | payer OTHER, SELFPAY | PROVIDERS: PCP Family Medicine; Visit Provider Anesthesiology | DX: G89.29 Other chronic pain (principal); M54.2 Cervicalgia; M19.112 Post-traumatic osteoarthritis, left shoulder; M25.511 Pain in right shoulder; M54.50 Low back pain, unspecified; Z79.891 Long term (current) use of opiate analgesic | CPT/HCPCS: 99214 ==

== ENCOUNTER 2020-11-22 12:40 | Observation (INO) | payer OTHER, MEDICARE, SELFPAY ==
[2020-11-22] VITALS (13 sets, daily range): BP systolic 84–142; BP diastolic 41–83; PULSE 46–59; RESP 12–26; TEMP 35.8–36.6; O2SAT 92–100; BMI 29.4
--- NOTE | 2020-11-22 12:56 | ECG_ITS ---
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 Measurements Intervals [place] Rate: 56 P: TN: QRS: -27 QRSD: 110 T: 61 QT: 424 QTc: 410 Interpretive Statements Sinus bradycardia with first-degree AV block Frequent PVCs POSSIBLE ANTERIOR MYOCARDIAL INFARCTION , OF INDETERMINATE AGE [30 ms Q WAVE IN V3/V4, OR R < 0.2 mV IN V4] Compared to ECG 08/07/2020 23:23:28 Myocardial infarct finding now present Electronically Signed On 11-22-2020 23:20:21 CDT by Francesco Alexandra M.D. [id number]
--- NOTE | 2020-11-22 12:56 | XRR_ITS ---
PROCEDURE INFORMATION: Exam: XR Chest Exam date and time: 11/22/2020 12:56 PM Age: 65 years old Clinical indication: Pain; Left-sided; Prior surgery; Surgery date: 6+ months; Additional info: Chest pain TECHNIQUE: Imaging protocol: XR of the chest. Views: 1 view. COMPARISON: CR (CHEST, ) 08/07/2020 11:08 PM FINDINGS: Lungs: Lungs symmetrically expanded. No consolidation. No evidence of edema. Pleural spaces: Unremarkable. No pleural effusion. No pneumothorax. Heart/Mediastinum: Cardiac silhouette mildly enlarged. Evidence of CABG. Bones/joints: Median sternotomy wires. XR/XR chest 1V portable [id number] IMPRESSION: No acute findings. Radiation Dose CTDIVOL = (mGy): DLP = (mGy-cm)
--- NOTE | 2020-11-22 13:05 | ED_ITS ---
HPI - Chest Pain General: Chief Complaint: Chest Pain Stated Complaint: CP,FOGGY,DIZZY,SHARP PAIN UP BACK OF HEAD Time Seen by Provider: 11/22/20 13:04 History of Present Illness: HPI narrative: Mr. Murphy is a 65-year-old gentleman with complex past medical history including hypertension, hyperlipidemia, CABG x5, CKD, diabetes who presents the emergency department due to chest pain and abnormal muscle movements. Symptoms started gradually and intermittently with occasional twitches and tremulous movements about 1 month ago. He does not recall similar episodes in the past. These become more frequent and more intense. He has associated neck pain and headache. Additionally he now reports left anterior chest pain with mild associated shortness of breath, radiation, and nausea. This occurred primarily at spirit[facility]. He describes episodes of lightheadedness that are more orthostatic in nature which have caused near syncope a number of times over the past month as well. No medication changes. No other specific provoking, exacerbating, or relieving factors identified Review of Systems General: Reports: 10 or more systems reviewed and unremarkable except in HPI and below PFSH ED PFSH: Medical History Acute on chronic combined systolic and diastolic CHF, NYHA class 2 Atherosclerosis of coronary artery of [place] heart without angina pectoris Attention deficit hyperactivity disorder (ADHD), predominantly hyperactive- impulsive or combined type Benign essential hypertension with target blood pressure below 140/90 CAD (coronary artery disease) Cervical spine pain CHF (congestive heart failure) Chronic low back pain Chronic systolic heart failure COPD (chronic obstructive pulmonary disease) Dyslipidemia Dyslipidemia (high LDL; low HDL) Dysrhythmias Encounter for long-term opiate analgesic use Hypertension Long-term use of high-risk medication Mild neurocognitive disorder due to traumatic brain injury Near syncope Pain, joint, shoulder, left Traumatic brain injury Ventricular arrhythmia Surgical History History of carpal tunnel release Left, 02/28/2019 S/P CABG (coronary artery bypass graft) S/P decompression of ulnar nerve at elbow 11/26/18 Dr. Neely-right elbow 02/28/2019 - left elbow S/P hemorrhoidectomy S/P inguinal hernia repair S/P PTCA (percutaneous transluminal coronary angioplasty) S/P tonsillectomy and adenoidectomy Status post lumbar laminectomy Family History Father Diabetes Mother Diabetes CAD (coronary artery disease) Lung disease Brother Diabetes Sister Diabetes Grandmother Dementia Other Chronic kidney disease (CKD) Hypertension Denies family history of Clotting disorder Suicide Anesthesia complication Bleeding disorder Cancer Stroke Social History Smoking and tobacco status: never smoked Second hand smoke exposure: No Alcohol intake: former Caregiver/support person: Yes Lives independently: Yes Household members: spouse Marital status: History of recent travel: No Physical Exam Narrative: EXAM NARRATIVE: GENERAL/CONSTITUTIONAL - well-appearing. No acute distress. Eyes - PERRL, no conjunctival injection ENMT - Atraumatic external nose and ears. Moist mucous membranes NECK - supple. trachea midline CARDIOVASCULAR -irregular rate and rhythm. Bradycardia. RESPIRATORY -clear to auscultation bilaterally. No retractions or accessory muscle use. ABDOMEN/GI - Nontender/Nondistended. No tenderness to percussion or evidence of peritonitis MSK - Extremities without obvious deformity or tenderness to palpation SKIN - Warm, Dry NEURO - alert and appropriately oriented. Cranial nerves II through XII intact, gait normal. Coordination normal. Strength and sensation intact. PSYCH - Appropriate mood and affect Course ED course: - Patient was seen and evaluated by me at bedside - Patient placed on cardiac monitors, IV access obtained - Initial evaluation notable for no acute distress, nontoxic appearance. Challenging history with various complaints that are not united for by 1 clear cause. No neurologic deficits. - Labs notable for no leukocytosis, normal hemoglobin. Metabolic panel without significant electrolyte derangements, near baseline if not improved from baseline creatinine. Delta troponin negative. BNP mildly elevated. TSH high but normal free T4. - Imaging notable for no acute abnormality to explain symptoms - on exam it was noted that most PVCs were not correlating with pulses so despite telemetry pulses of 50s his actual palpated pulse was significantly lower. Blood pressure remained satisfactory. - Upon serial reexamination after treatment the patient was similar -Discussed case with cardiology on-call - Based on patient history, evaluation, labs, and imaging as interpreted the most likely cause of the patient's condition is unclear, heart rate is abnormally low and certainly could explain syncope and presyncopal episodes. - The results of ED evaluation were discussed with the patient including plan for admission due to requirement for level of care not available if discharged to prevent significant worsening/deterioration. - Hospitalist service contacted and agreed admit the patient - Patient was admitted without further deterioration or significant events. Vital Signs: Vital signs: Vital Signs Temperature 98.2 F 11/24/20 10:18 Pulse Rate 56 L 11/24/20 19:16 Respiratory Rate 19 H 11/24/20 19:16 Blood Pressure 123/62 11/24/20 19:16 Pulse Oximetry 98 11/24/20 19:16 MDM - Chest Pain Medical Records: Attestation: I reviewed the patient's medical records. Lab Data: Attestation: I reviewed the patient's lab results. Labs: Lab Results 11/22/20 11/22/20 11/22/20 13:33 13:50 13:50 WBC 6.7 10^3/uL 10^3/ uL (4.0-10.0) RBC 4.84 10^6/uL 10^6 /uL (4.1-5.3) Hgb 15.0 g/dL g/dL (11.7-16.6) Hct 45.0 % % (42.0-52.0) MCV 93.0 fl fl (80-94) MCH 31.0 pg pg (28.0-34.0) MCHC 33.3 g/dL g/dL (30.0-36.0) RDW 13.9 % % (12.1-15.1) Plt Count 187 10^3/cmm 10^3 /cmm (130-400) MPV 10.6 fL H fL (7.4-10.4) Neut % (Auto) 55.3 % % Lymph % (Auto) 27.8 % % [place] % (Auto) 10.0 % % Eos % (Auto) 5.7 % % Baso % (Auto) 0.9 % % Neut # (Auto) 3.70 10^3/uL 10^3 /uL (1.8-7.7) Lymph # (Auto) 1.9 10^3/uL 10^3/ uL (0.8-4.8) [place] # (Auto) 0.7 10^3/uL 10^3/ uL (0.2-0.9) Eos # (Auto) 0.4 10^3/uL 10^3/ uL (0.0-0.8) Baso # (Auto) 0.1 10^3/uL 10^3/ uL (0.0-0.1) Nucleated RBC % (a uto) 0 % % Nucleated RBCs # 0.0 /100WBC /100W BC Sodium 141 mmol/L mmol/L (136-145) Potassium 4.9 mmol/L mmol/L (3.5-5.1) Chloride 104 mmol/L mmol/L (98-107) Carbon Dioxide 27 mmol/L mmol/L (22-29) Anion Gap 14.9 (5-19) BUN 47 mg/dL H mg/dL (8-23) Creatinine 1.6 mg/dL H mg/dL (0.7-1.2) GFR Calculation 43.3 mL/min L mL/ min (90-130) Glucose 181 mg/dL H mg/dL (65-115) POC Glucose 194 mg/dL H mg/dL (70-110) Calculated Osmolal ity 309 mOsm/kg H mOs m/kg (285-295) Calcium 9.7 mg/dL mg/dL (8.5-10.5) Total Bilirubin 0.3 mg/dL mg/dL (0.15-1.2) AST 27 U/L U/L (0-40) ALT 34 U/L U/L (0-41) Alkaline Phosphata se 86 IU/L IU/L (40-130) Troponin T Baselin e Troponin T 120 Min irvin Delta Troponin T NT-Pro-B Natriuret Pep 1434 pg/mL H pg/m L (0-125) Total Protein 6.6 g/dL g/dL (6.6-8.7) Albumin 4.1 g/dL g/dL (3.5-5.2) Globulin 2.5 g/dL g/dL (1.3-4.6) Lipase 37 U/L U/L (13-60) TSH 5.82 uIU/mL H uIU /mL (0.27-4.20) Free T4 11/22/20 11/22/20 11/22/20 13:50 13:50 15:50 WBC RBC Hgb Hct MCV MCH MCHC RDW Plt Count MPV Neut % (Auto) Lymph % (Auto) [place] % (Auto) Eos % (Auto) Baso % (Auto) Neut # (Auto) Lymph # (Auto) [place] # (Auto) Eos # (Auto) Baso # (Auto) Nucleated RBC % (a uto) Nucleated RBCs # Sodium Potassium Chloride Carbon Dioxide Anion Gap BUN Creatinine GFR Calculation Glucose POC Glucose Calculated Osmolal ity Calcium Total Bilirubin AST ALT Alkaline Phosphata se Troponin T Baselin e 46 ng/L H ng/L (0-15) Troponin T 120 Min irvin 42.27 ng/L H ng/L (0-15) Delta Troponin T -3.73 ABS# L ABS# (0-10) NT-Pro-B Natriuret Pep Total Protein Albumin Globulin Lipase TSH Free T4 1.03 ng/dL ng/dL (0.82-1.77) EKG Data^: EKG 1: Attestation: I personally reviewed and interpreted this EKG as follows: EKG interpretation date: 11/22/20 EKG interpretation time: 13:09 Interpretation: Twelve-lead EKG shows an irregular rhythm at a rate of 56 AR interval normal, QRS duration 110, QTc 415 Left axis deviation Interpretation: Sinus rhythm, frequent PVCs. EKG 2: Attestation: I personally reviewed and interpreted this EKG as follows: EKG interpretation date: 11/22/20 EKG interpretation time: 16:15 Interpretation: Twelve-lead EKG shows a irregular rhythm at a rate of 51 AR interval 193, QRS duration 112, QTc 428 Left axis deviation Interpretation: Sinus rhythm. Frequent PVCs. 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
--- NOTE | 2020-11-22 13:28 | CTR_ITS ---
PROCEDURE INFORMATION: Exam: CT Lumbar Spine Without Contrast Exam date and time: 11/22/2020 1:28 PM Age: 65 years old Clinical indication: Low back pain; Prior surgery; Surgery date: 6+ months; Surgery type: Lami; Patient HX: C/O lbp TECHNIQUE: Imaging protocol: Computed tomography images of the lumbar spine without contrast. Radiation optimization: All CT scans at this facility use at least one of these dose optimization techniques: automated exposure control; mA and/or kV adjustment per patient size (includes targeted exams where dose is matched to clinical indication); or iterative reconstruction. COMPARISON: CT Lumbar Spine w contra [id number] 06/07/2017 10:17 AM RADIATION DOSE METRICS: Total DLP (mGy-cm): 2398.29 FINDINGS: Vertebrae: Spinal alignment is normal. Vertebral body height is maintained. There is mild multilevel facet spondylosis. No acute fracture. There is a left laminotomy at L4. Discs/Spinal canal/Neural foramina: There is a generalized disc bulge at L4-L5. There is no focal disc herniation. There is mild spinal stenosis at L4-L5. Kidneys and ureters: Nonobstructive stones are seen in both kidneys. Vasculature: There is severe aortic atherosclerotic disease. Soft tissues: Paraspinal soft tissues are unremarkable. CT/CT lumbar spine wo con* [id number] IMPRESSION: 1. No acute findings. 2. Mild generalized disc bulge and mild spinal stenosis at L4-L5. 3. Incidental findings above. Radiation Dose CTDIVOL = (mGy): DLP = 2398.29 (mGy-cm)
--- NOTE | 2020-11-22 13:28 | CTR_ITS ---
PROCEDURE INFORMATION: Exam: CT Angiography Head With Contrast, Arteriography Exam date and time: 11/22/2020 1:28 PM Age: 65 years old Clinical indication: Dizziness and giddiness and weakness; Patient HX: C/O dizziness, weakness and tremors; Additional info: Tremor, weakn, dizzy TECHNIQUE: Imaging protocol: Computed tomography angiography of the head with contrast. Exam focused on the arteries. 3D rendering (Not supervised by radiologist): MIP and/or 3D reconstructed images were created by the technologist. Radiation optimization: All CT scans at this facility use at least one of these dose optimization techniques: automated exposure control; mA and/or kV adjustment per patient size (includes targeted exams where dose is matched to clinical indication); or iterative reconstruction. Contrast material: VISI 320; Contrast volume: 95 ml; Contrast route: INTRAVENOUS (IV); COMPARISON: CT head wo con* [id number] 11/22/2020 3:27 PM RADIATION DOSE METRICS: Total DLP (mGy-cm): 1920.14 FINDINGS: ANTERIOR CIRCULATION: Right internal carotid artery: There is mild atherosclerotic disease in the cavernous portion of the right internal carotid artery without significant stenosis. Right middle cerebral artery: Unremarkable. No occlusion or significant stenosis. No aneurysm. Right anterior cerebral artery: Unremarkable. No occlusion or significant stenosis. No aneurysm. Left internal carotid artery: Unremarkable. Intracranial segment is patent with no significant stenosis. No aneurysm. Left middle cerebral artery: Unremarkable. No occlusion or significant stenosis. No aneurysm. Left anterior cerebral artery: Unremarkable. No occlusion or significant stenosis. No aneurysm. POSTERIOR CIRCULATION: Right vertebral artery: There is focal calcific plaque in the right vertebral artery with less than 50% stenosis. Left vertebral artery: The left vertebral artery is hypoplastic and does not contribute to the basilar artery. Basilar artery: Unremarkable. No occlusion or significant stenosis. No aneurysm. Right posterior cerebral artery: Unremarkable. No occlusion or significant stenosis. No aneurysm. Left posterior cerebral artery: Unremarkable. No occlusion or significant stenosis. No aneurysm. Veins: Dural venous sinuses are patent. Brain: The brain is unremarkable. There is no mass effect or significant white matter disease. Cerebral ventricles: There is no significant ventricular dilation. The basal cisterns are unremarkable. Bones/joints: The calvarium is intact. Mastoid air cells: The mastoid air cells are clear. Soft tissues: The visible extracranial soft tissues are unremarkable. Paranasal sinuses: there is opacification of the solitary right posterior ethmoid air cell. Paranasal sinuses are otherwise clear. IMPRESSION: No arterial stenosis, occlusion or aneurysm. PROCEDURE INFORMATION: Exam: CT Angiography Neck With Contrast Exam date and time: 11/22/2020 1:28 PM Age: 65 years old Clinical indication: Dizziness and giddiness and weakness; Patient HX: C/O dizziness, weakness and tremors; Additional info: Tremor, weakn, dizzy TECHNIQUE: Imaging protocol: Computed tomography angiography of the neck with contrast. 3D rendering (Not supervised by radiologist): MIP and/or 3D reconstructed images were created by the technologist. Radiation optimization: All CT scans at this facility use at least one of these dose optimization techniques: automated exposure control; mA and/or kV adjustment per patient size (includes targeted exams where dose is matched to clinical indication); or iterative reconstruction. Contrast material: VISI 320; Contrast volume: 95 ml; Contrast route: INTRAVENOUS (IV); COMPARISON: CT head wo con* [id number] 11/22/2020 3:27 PM RADIATION DOSE METRICS: Total DLP (mGy-cm): 1920.14 FINDINGS: Right common carotid artery: No stenosis. No dissection or occlusion. Right internal carotid artery: There is marked calcific plaque at the origin of the right internal carotid artery. There is focal stenosis of less than 50%. Right external carotid artery: No occlusion or stenosis of the origin. Left common carotid artery: No stenosis. No dissection or occlusion. Left internal carotid artery: There is mild calcific plaque at the origin of the left internal carotid artery with less than 50% stenosis. Left external carotid artery: No occlusion or stenosis of the origin. Right vertebral artery: There is minimal calcific plaque in the widely patent dominant right vertebral artery. Left vertebral artery: The left vertebral artery is hypoplastic. Soft tissues: Soft tissues in the neck and thoracic inlet are unremarkable. Bones/joints: Bones are unremarkable. Lungs: Lung apices are clear. CT/CT angio headneck* [id number] IMPRESSION: 1. No arterial occlusion or dissection. 2. Less than 50% stenosis at the origin of right internal carotid artery. REFERENCES: NASCET CRITERIA. The degree of internal carotid artery stenosis is based on NASCET criteria. Normal is no stenosis. Mild is less than 50% stenosis. Moderate is 50-69% stenosis. Severe is 70% to 99% stenosis. Total occlusion is no detectable patent lumen. Radiation Dose CTDIVOL = (mGy): DLP = 1920.14~1920.14 (mGy-cm)
--- NOTE | 2020-11-22 13:31 | CTR_ITS ---
PROCEDURE INFORMATION: Exam: CT Head Without Contrast Exam date and time: 11/22/2020 1:31 PM Age: 65 years old Clinical indication: Dizziness and other: Weakness; Patient HX: C/O dizziness, weakness and tremors; Additional info: Dizzy, pain TECHNIQUE: Imaging protocol: Computed tomography of the head without contrast. Radiation optimization: All CT scans at this facility use at least one of these dose optimization techniques: automated exposure control; mA and/or kV adjustment per patient size (includes targeted exams where dose is matched to clinical indication); or iterative reconstruction. COMPARISON: MR head wo/w con [id number] 08/29/2019 9:37 AM RADIATION DOSE METRICS: Total DLP (mGy-cm): 1054.79 FINDINGS: Brain: Mild volume loss and white matter disease are identified. There is no acute infarct or edema. No hemorrhage. Cerebral ventricles: No ventriculomegaly. Paranasal sinuses: There is mild ethmoid sinus opacification. Mastoid air cells: Visualized mastoid air cells are well aerated. Bones/joints: Unremarkable. No acute fracture. Soft tissues: Unremarkable. CT/CT head wo con* [id number] IMPRESSION: There are no acute concerning abnormalities. Radiation Dose CTDIVOL = (mGy): DLP = 1054.79 (mGy-cm)
[2020-11-22 13:53] LABS: Glucose Point of Care 194 mg/dL (70-110)
[2020-11-22] MEDS: aspirin 81 mg Chew Tablet 324 MG PO (13:57)
[2020-11-22] MEDS: morphine 4 mg/mL SDV 1 mL IVP (13:57)
[2020-11-22 13:59] LABS: Basophils # 0.1 10^3/uL (0.0-0.1); Basophils % 0.9 %; Eosinophils # 0.4 10^3/uL (0.0-0.8); Eosinophils % 5.7 %; Lymphocytes # 1.9 10^3/uL (0.8-4.8); Lymphocytes % 27.8 %; Mean Corpuscular HGB Conc 33.3 g/dL (30.0-36.0); Mean Platelet Volume 10.6 fL (7.4-10.4); Monocytes # 0.7 10^3/uL (0.2-0.9); Neutrophils % 55.3 %; Nucleated Red Blood Cells % 0 %; Platelet Count 187 10^3/cmm (130-400); Red Blood Count 4.84 10^6/uL (4.1-5.3); Red Cell Distribution Width 13.9 % (12.1-15.1); White Blood Count 6.7 10^3/uL (4.0-10.0)
[2020-11-22 14:36] LABS: Troponin(5th) Baseline 46 ng/L (0-15)
[2020-11-22 14:48] LABS: Alanine Aminotransferase 34 U/L (0-41); Albumin Level 4.1 g/dL (3.5-5.2); Alkaline Phosphatase 86 IU/L (40-130); Anion Gap 14.9 (5-19); Aspartate Amino Transferase 27 U/L (0-40); Blood Urea Nitrogen 47 mg/dL (8-23); Calcium 9.7 mg/dL (8.5-10.5); Carbon Dioxide 27 mmol/L (22-29); Chloride 104 mmol/L (98-107); Globulin 2.5 g/dL (1.3-4.6); Glomerular Filtration Rate 43.3 mL/min (90-130); Glucose 181 mg/dL (65-115); Lipase 37 U/L (13-60); NT Pro B Type Natriuretic Pept 1434 pg/mL (0-125); Osmolality Calculated 309 mOsm/kg (285-295); Potassium 4.9 mmol/L (3.5-5.1); Sodium 141 mmol/L (136-145); Thyroid Stimulating Hormone 5.82 uIU/mL (0.27-4.20); Total Bilirubin 0.3 mg/dL (0.15-1.2); Total Protein 6.6 g/dL (6.6-8.7)
--- NOTE | 2020-11-22 14:56 | ECG_ITS ---
[facility] Test Date: 2020-11-22 Pat Name: Santy Murphy Department: Room: Gender: Male [employer]: : [id number] Requested By: Jean-Paul Beyer Order Number: [id number] Vandana MD: Francesco Alexandra M.D. Measurements Intervals [place] Rate: 51 P: 91 MO: 193 QRS: -26 QRSD: 112 T: 67 QT: 462 QTc: 428 Interpretive Statements SINUS BRADYCARDIA WITH OCCASIONAL VENTRICULAR PREMATURE COMPLEXES VOLTAGE CRITERIA FOR LVH [MEETS CRITERIA IN ONE OF: R(aVL), S(V1), R(V5), R(V5/V6)+S(V1)] POSSIBLE ANTERIOR MYOCARDIAL INFARCTION , OF INDETERMINATE AGE [30 ms Q WAVE IN V3/V4, OR R < 0.2 mV IN V4] Compared to ECG 08/07/2020 23:23:28 Myocardial infarct finding now present Electronically Signed On 11-22-2020 23:23:07 CDT by Francesco Alexandra M.D. [id number]
[2020-11-22] MEDS: iodixanol 320 mg/mL 100mL Btl IV (15:43)
[2020-11-22 15:53] LABS: Free T4 Free Thyroxine 1.03 ng/dL (0.82-1.77)
[2020-11-22 16:44] LABS: Troponin 5 2HR 42.27 ng/L (0-15)
[2020-11-22 16:46] LABS: Troponin 5 2HR Delta -3.73 ABS# (0-10)
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
[2020-11-22 21:38] LABS: Troponin 5 6HR 40.33 ng/L (0-15)
[2020-11-22 21:41] LABS: Troponin 5 6HR Delta -5.67 ng/L (0-12)
[2020-11-23] VITALS (15 sets, daily range): BP systolic 100–152; BP diastolic 45–80; PULSE 50–80; RESP 14–26; TEMP 36.3–36.8; O2SAT 94–99
[2020-11-23 06:12] LABS: Glucose Point of Care 77 mg/dL (70-110)
[2020-11-23] MEDS: clopidogrel 75 mg Tablet PO (08:51)
[2020-11-23] MEDS: aspirin 81 mg EC Tablet PO (08:51)
[2020-11-23] MEDS: gabapentin 100 mg Capsule PO ×2 (08:51→18:12)
[2020-11-23] MEDS: allopurinol 300 mg Tablet PO (08:51)
[2020-11-23] MEDS: ferrous sulfate EC 325 mg Tablet PO (08:51)
[2020-11-23] MEDS: fluoxetine 20 mg Capsule PO (08:51)
--- NOTE | 2020-11-23 09:37 | PC.CHAP ---
Pastoral Care Encounter/Spiritual Assessment Type of Contact [] Declined configuration management administrator visit [] Patient/Family/Request visit [] Outpatient visit [] Follow-up visit [] Physician referral [] Code/Alert [x] Routine visit [] Staff referral [] Actively dying [] Patient sleeping [] Family support [] [] Out of room [] Palliative care [] [] Receiving care in room [] Pre-surgical visit [] Trauma [] Long length of stay [] ICU visit [] Other: Relational/Emotional Strength [] Patient feels connected with others/family/visitors/staff [] Distress [] Loneliness/isolation [] Abandonment Spirituality of Patient [] Person of Bety [] Attends Mandaeism of their Bety [] Believes in Prayer [] Reads Bible or Religion materials [] There are Spiritual issues to be addressed Environmental Educator Interventions [x] Prayer [x] Active listening [x] Non-anxious presence [x] Spiritual/emotional support [] Crisis/trauma care [] Spiritual counseling [] Bereavement support [] Provided bereavement packet [] Provided Bible/devotional materials [] Provided toy/stuffed animal, coloring book to patient or family member [] Provided Communion [] Anointing/Mcdonald [] Salvation [x] Completed spiritual assessment [] Other: Impact on Illness or Injury [] Angry [] Fearful [] Anxious [] Often cries [] Exhaustion [] Unable to work [] Unable to attend orthodoxy [] Unable to walk/stand [] Unable to read [] Unable to drive [] Unable to eat/drink [] Unable to sleep [] Unable to be with family [] Patient intubated [] Other: Summary prefers to be called Jose Daniel... feeling better, has questions regarding cause of his issues Time spent with patient 10 min
--- NOTE | 2020-11-23 10:20 | P.CONIM_ITS ---
Providers/Reason For Consult Consulting Physician/Specialty*: Francesco Alexandra MD/Cardiology Reason for Consult*: Bradycardia/chest pain Requesting Physician: Dr Eagle Attending Physician: Leighton Eagle Primary Care Provider: Crystal Miller MD History of Present Illness History of Present Illness Santy Murphy is a 65 year old male with PMH of CAD with CABG, hypertension, diabete presented to hospital with an episode of lightheadedness, diaphoresis and left sided chest discomfort. He says he has chronic pains and can not tell if symptoms of chest pain are secondary to that but on my evaluation he was rubbing his chest. Troponins did not trend up significantly. He has a history of frequent PVCs. His heart rate is trending in 50s however says that his blood pressure monitor gives readings of 40-50s. Blood pressure is stable He had event monitor done recently that has not been interpreted yet. Review of Systems Const: Denies: fever(s), chills, body aches or malaise Eyes: Denies: change in vision or eye redness ENMT: Denies: throat pain, oral sores or ear or mastoid pain Card: Reports: chest pain; Denies: edema, pre-syncope or dyspnea on exertion Resp: Reports: other (Chronic mild dyspnea, mild dry cough); Denies: dyspnea, productive cough, change in phlegm color or hemoptysis GI: Reports: nausea; Denies: abdominal pain, vomiting, diarrhea, constipation, hematochezia or melena : Denies: flank pain, difficulty urinating, urinary frequency or hematuria Musc: Denies: back pain, joint swelling or joint redness Skin/Breast: Reports: sores (Now healing sores on right knuckle, left leg after genny thorn injury); Denies: rash or new lesions Neuro: Denies: headache(s), numbness in extremities, weakness in extremities, dizziness, confusion or seizure-like activity Endo: Denies: polyuria or polydipsia Fidel/Lymph: Denies: easy bleeding or purpura All/Imm: Denies: urticaria, throat swelling or tongue swelling Meds/Allergies Home Medications and Allergies Home Medications Medication Instructions Recorded Confirmed Last Taken Type cetirizine 10 mg capsule 10 mg PO DAILY PRN cap 02/07/19 11/22/20 Unknown History cholecalciferol (vitamin D3) 250 3,000 unit PO DAILY 02/07/19 11/22/20 11/22/20 History mcg (10,000 unit) tablet clopidogrel 75 mg tablet 75 mg PO DAILY 02/07/19 11/22/20 11/22/20 History coenzyme Q10 75 mg capsule 100 mg PO DAILY 02/07/19 11/22/20 11/22/20 History omega-3 fatty acids 1,000 mg 1,000 mg PO BID 02/07/19 11/22/20 11/22/20 History capsule chlorthalidone 25 mg PO DAILY 02/27/19 11/22/20 11/21/20 History allopurinol 300 mg tablet 300 mg PO DAILY tab 11/06/19 11/22/20 11/22/20 Histor y aspirin 81 mg tablet,delayed 81 mg PO DAILY tab 11/06/19 11/22/20 11/22/20 History release atorvastatin 20 mg tablet 20 mg PO DAILY tab 11/06/19 11/22/20 11/21/20 History ferrous sulfate 325 mg (65 mg 325 mg PO DAILY tab 11/06/19 11/22/20 11/22/20 History iron) tablet fluoxetine 20 mg capsule 20 mg PO DAILY #90 cap 11/06/19 11/22/20 11/22/20 Rx donepezil 10 mg tablet 10 mg PO DAILY #30 tab 02/03/20 11/22/20 11/21/20 Rx metoprolol tartrate 50 mg tablet See Rx Instructions .ROUTE 05/14/20 11/22/20 11/22/20 Rx .COMPLEX #90 tab amphetamine sulfate 20 mg 20 mg PO DAILY tab 07/21/20 11/22/20 11/22/20 History disintegrating tablet insulin aspart U-100 100 unit/mL 10 unit SUBCUT .ss ml 07/21/20 11/22/20 Unknown History subcutaneous solution diclofenac sodium 1 % topical gel 4 g TOPICAL QID #400 g 11/19/20 11/22/20 Unknown Rx gabapentin 100 mg capsule 100 mg PO TID 90 Days #270 cap 11/19/20 11/22/20 11/22/20 Rx hydrocodone 10 mg-acetaminophen 1 tab PO Q8H PRN 30 Days #90 tab 11/19/20 11/22/20 Unknown Rx 325 mg tablet tramadol 50 mg tablet 100 mg PO Q8H PRN 30 Days #180 tab 11/19/20 11/22/20 Unknown Rx insulin glargine [Lantus U-100 50 unit SUBCUT BID 11/22/20 11/22/20 11/22/20 History Insulin] Allergies Allergy/AdvReac Type Severity Reaction Status Date / Time oxycodone [From Percocet] AdvReac Severe nausea, Verified 11/19/20 13:59 short of breath cedar leaf AdvReac Unknown Unknown Verified 11/19/20 13:59 Current Medications Current Medications Generic Name Dose Route Start Last Admin Trade Name Freq PRN Reason Stop Dose Admin Allopurinol 300 mg 11/23/20 09:00 11/23/20 08:51 Allopurinol 300 Mg Tablet PO 300 mg DAILY VELMA Administration Aspirin 81 mg 11/23/20 09:00 11/23/20 08:51 Aspirin 81 Mg Ec Tablet PO 81 mg DAILY VELMA Administration Clopidogrel Bisulfate 75 mg 11/23/20 09:00 11/23/20 08:51 Clopidogrel 75 Mg Tablet PO 75 mg DAILY VELMA Administration Ferrous Sulfate 325 mg 11/23/20 09:00 11/23/20 08:51 Ferrous Sulfate Ec 325 Mg Tablet PO 325 mg DAILY VELMA Administration Fluoxetine HCl 20 mg 11/23/20 09:00 11/23/20 08:51 Fluoxetine 20 Mg Capsule PO 20 mg DAILY VELMA Administration Gabapentin 100 mg 11/23/20 09:00 11/23/20 08:51 Gabapentin 100 Mg Capsule PO 100 mg BID VELMA Administration Insulin Human Lispro 0 unit 11/23/20 08:00 11/23/20 08:29 Insulin Lispro 100 Unit/1 Ml SUBCUT Not Given [facility] Protocol PFSH Acute PFSH: Medical History Acute on chronic combined systolic and diastolic CHF, NYHA class 2 Atherosclerosis of coronary artery of [place] heart without angina pectoris Attention deficit hyperactivity disorder (ADHD), predominantly hyperactive- impulsive or combined type Benign essential hypertension with target blood pressure below 140/90 CAD (coronary artery disease) Cervical spine pain CHF (congestive heart failure) Chronic low back pain Chronic systolic heart failure COPD (chronic obstructive pulmonary disease) Dyslipidemia Dyslipidemia (high LDL; low HDL) Dysrhythmias Encounter for long-term opiate analgesic use Hypertension Long-term use of high-risk medication Mild neurocognitive disorder due to traumatic brain injury Near syncope Pain, joint, shoulder, left Traumatic brain injury Ventricular arrhythmia Surgical History History of carpal tunnel release Left, 02/28/2019 S/P CABG (coronary artery bypass graft) S/P decompression of ulnar nerve at elbow 11/26/18 Dr. Neely-right elbow 02/28/2019 - left elbow S/P hemorrhoidectomy S/P inguinal hernia repair S/P PTCA (percutaneous transluminal coronary angioplasty) S/P tonsillectomy and adenoidectomy Status post lumbar laminectomy Family History Father Diabetes Mother Diabetes CAD (coronary artery disease) Lung disease Brother Diabetes Sister Diabetes Grandmother Dementia Other Chronic kidney disease (CKD) Hypertension Denies family history of Clotting disorder Suicide Anesthesia complication Bleeding disorder Cancer Stroke Social History Smoking and tobacco status: never smoked Second hand smoke exposure: No Alcohol intake: former Substance/Drug Use: never Caregiver/support person: Yes Lives independently: Yes Household members: spouse Marital status: History of recent travel: No Vitals/I&O/Wt Last Vital Signs Temp 98.1 F 11/23/20 03:54 Pulse 54 L 11/23/20 05:29 Resp 18 11/23/20 05:29 BP 152/60 11/23/20 05:29 Pulse Ox 99 11/23/20 05:29 11/22/20 11/23/20 11/23/20 22:59 06:59 14:59 Intake Total 120 / 120 Balance 120 / 120 Weight last 48 hrs Weight 205 lb Physical Exam Const: COMMON NORMALS: no acute distress and patient oriented x3 HENMT: COMMON NORMALS: normocephalic HEAD & SCALP: normocephalic Eye: COMMON NORMALS: Equal, round and reactive pupils present PUPIL: Yes Equal, round and reactive pupils present Resp: COMMON NORMALS: normal respiratory effort Cardio: COMMON NORMALS: S1 normal heart sound present and S2 normal heart sound present RATE: bradycardic HEART SOUNDS: S1 normal heart sound present and S2 normal heart sound present GI: COMMON NORMALS: Soft to palpation PALPATION: Yes Soft to palpation Extremity: COMMON NORMALS: normal to inspection and no pedal edema Neuro: COMMON NORMALS: patient oriented x3 A&P Assessment and plan (1) PVCs (premature ventricular contractions): Status: Acute (2) Bradycardia: Status: Acute (3) Chest pain: Status: Acute (4) Pre-syncope: Status: Acute (5) Type 2 diabetes mellitus with cardiac complication: Status: Acute (6) CKD (chronic kidney disease) stage 3, GFR 30-59 ml/min: Status: Acute Patient has presented with atypical chest pain and lightheadedness. He has frequent PVCs but his heart rate stays in 50s and blood pressure is stable. Had a recent event monitor not interpreted yet. We will follow on that. Given atypical chest pain symptoms and significant history of CAD with prior cabg, recommend Lexiscan Continue tele monitoring. Can start low dose beta jessika Thank you for involving us with care of this patient. We will continue to follow. Please call with questions. Coding Level of Care Code Acute Critical Care Physician for [facility] Diagnoses PVCs (premature ventricular contractions) I49.3 Bradycardia R00.1 Chest pain R07.9 Pre-syncope R55 Type 2 diabetes mellitus with cardiac complication E11.59 CKD (chronic kidney disease) stage 3, GFR 30-59 ml/min N18.30
[2020-11-23] MEDS: insulin glargine 100 units/1 mL 50 UNIT SUBCUT ×2 (10:57→20:03)
[2020-11-23 11:03] LABS: Glucose Point of Care 182 mg/dL (70-110)
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
[2020-11-23] MEDS: insulin lispro 100 unit/1 mL SUBCUT ×2 (11:28→18:12)
[2020-11-23] MEDS: metoprolol tartrate 25 mg Tablet 12.5 MG PO ×2 (11:28→22:48)
--- NOTE | 2020-11-23 16:47 | PC.RESP ---
PULMONARY REHAB INFORMATION SENT TO PATIENT.
[2020-11-23 18:55] LABS: Glucose Point of Care 242 mg/dL (70-110)
[2020-11-23] MEDS: atorvastatin 40 mg Tablet 20 MG PO (20:03)
[2020-11-23] MEDS: donepezil 5 MG Tablet PO (20:03)
[2020-11-23 20:30] LABS: Glucose Point of Care 268 mg/dL (70-110)
[2020-11-23] MEDS: HYDROcodone-acetaminophen 10-325 mg Tablet 1 TAB PO (22:50)
[2020-11-24] VITALS (8 sets, daily range): BP systolic 98–152; BP diastolic 62–76; PULSE 49–67; RESP 17–27; TEMP 36.8; O2SAT 97–98
[2020-11-24 05:00] LABS: Basophils # 0.1 10^3/uL (0.0-0.1); Basophils % 0.8 %; Eosinophils # 0.3 10^3/uL (0.0-0.8); Eosinophils % 3.9 %; Hematocrit 44.6 % (42.0-52.0); Hemoglobin 14.8 g/dL (11.7-16.6); Lymphocytes # 2.2 10^3/uL (0.8-4.8); Lymphocytes % 29.2 %; Mean Corpuscular HGB Conc 33.2 g/dL (30.0-36.0); Mean Corpuscular Hemoglobin 31.1 pg (28.0-34.0); Mean Corpuscular Volume 93.7 fl (80-94); Mean Platelet Volume 10.5 fL (7.4-10.4); Monocytes # 0.8 10^3/uL (0.2-0.9); Monocytes % 10.9 %; Neutrophils # 4.06 10^3/uL (1.8-7.7); Neutrophils % 54.9 %; Nucleated Red Blood Cells % 0 %; Platelet Count 157 10^3/cmm (130-400); Red Blood Count 4.76 10^6/uL (4.1-5.3); Red Cell Distribution Width 13.8 % (12.1-15.1); White Blood Count 7.4 10^3/uL (4.0-10.0)
[2020-11-24 05:22] LABS: Alanine Aminotransferase 28 U/L (0-41); Albumin Level 3.4 g/dL (3.5-5.2); Alkaline Phosphatase 78 IU/L (40-130); Anion Gap 14.9 (5-19); Aspartate Amino Transferase 23 U/L (0-40); Blood Urea Nitrogen 39 mg/dL (8-23); Calcium 9.2 mg/dL (8.5-10.5); Carbon Dioxide 25 mmol/L (22-29); Chloride 107 mmol/L (98-107); Globulin 2.7 g/dL (1.3-4.6); Glomerular Filtration Rate 50.5 mL/min (90-130); Glucose 78 mg/dL (65-115); Magnesium 2.2 mg/dL (1.7-2.3); Osmolality Calculated 304 mOsm/kg (285-295); Potassium 3.9 mmol/L (3.5-5.1); Sodium 143 mmol/L (136-145); Total Bilirubin 0.4 mg/dL (0.15-1.2); Total Protein 6.1 g/dL (6.6-8.7)
[2020-11-24 05:56] LABS: Glucose Point of Care 85 mg/dL (70-110)
--- NOTE | 2020-11-24 07:36 | USCV_ITS ---
Santy Murphy Age: 65 Gender: M : 1955 Exam Date: 11/24/2020 11:50 Ordering Phys: Leighton Egale MD Technologist: Claudia Kang Exam Location: [facility] [place] Indication: carly, pre syncope BP: 149 / 62 HR: 53 Rhythm: Other Technical Quality: Adequate MEASUREMENTS (Male / Female) Normal Values 2D ECHO LV Diastolic Diameter PLAX 3.9 cm 4.2 - 5.9 / 3.9 - 5.3 cm LV Systolic Diameter PLAX 2.3 cm IVS Diastolic Thickness 1.6 cm 0.6 - 1.0 / 0.6 - 0.9 cm IVS Systolic Thickness 2.6 cm LVPW Diastolic Thickness 1.6 cm 0.6 - 1.0 / 0.6 - 0.9 cm LVPW Systolic Thickness 1.9 cm LVOT Diameter 2.0 cm LV Ejection Fraction 2D Teich 73.0 % LV Ejection Fraction MOD 2C 38.9 % LV Ejection Fraction 2C AL 39.9 % LA Diameter 4.2 cm LA Width 3.3 cm LA Height 5.6 cm RA Width 3.9 cm RA Height 4.2 cm Aorta at Sinotubular Diameter 3.5 cm DOPPLER AV Peak Velocity 273.0 cm/s LVOT Peak Velocity 238.0 cm/s AV Area Cont Eq vti 2.4 cm squared AV Area Cont Eq pk 2.8 cm squared MV Peak Velocity 97.0 cm/s MV Area PHT 2.8 cm squared Mitral E to A Ratio 0.9 MV E' Velocity 43.5 cm/s Mitral E to MV E' Ratio 9.9 Mitral E to LV E' Lateral Ratio 7.1 Mitral E to LV E' Septal Ratio 16.6 TR Peak Velocity 132.0 cm/s TR Peak Gradient 7.0 mmHg Right Atrial Pressure 3.0 mmHg Pulmonary Artery Systolic Pressu 10.0 mmHg PV Peak Velocity 60.0 cm/s RV Acceleration Time 0.2 s RV Ejection Time 0.4 s RV AcT/ET 0.5 FINDINGS Left Ventricle Moderate left ventricular hypertrophy. Grade II/IV diastolic dysfunction, moderately elevated filling pressures. Overall LV ejection fraction was around 55 to 60%. Mild hypokinesia of the basal inferior wall segment. Somewhat dyskinetic basal septal segment normal LV size with normal ejection fraction 55 to 60% Right Ventricle The right ventricle is normal in size and function. Right Atrium The right atrium is normal in size. Left Atrium Mildly increased left atrial size. Mitral Valve Thickened mitral valve. Mild mitral valve regurgitation. Aortic Valve Moderate aortic valve stenosis, mean gradient 14.1 mmHg, HEBER 1.19 cm squared Tricuspid Valve No gross abnormality noted Pulmonic Valve Pulmonic valve not well visualized. Pericardium Normal pericardium without effusion. Aorta Normal ascending aorta dimension. CONCLUSIONS Normal LV size with ejection fraction of 55 to 60%. Wall motion normalities as mentioned above. Moderate concentric left ventricular hypertrophy Type II diastolic dysfunction. Moderate aortic valve stenosis, mean gradient 14.1 mmHg, HEBER 1.19 cm squared. Thickened mitral valve. Mild mitral valve regurgitation. There is no pericardial effusion. There are no intracardiac masses. Compared to the study from 10/19/2017, there may not be a significant change Dr April Andres MD FAC (Electronically Signed) Final Date: 24 November 2020 17:25 S
--- NOTE | 2020-11-24 08:00 | ECG_ITS ---
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 Interpretive Statements NAME OF STUDY: LEXISCAN SESTAMIBI STRESS TEST INDICATION: Chest Pain; Coronary Artery Disease, PROCEDURE: At the baseline, the EKG revealed normal sinus rhythm with a frequent PVCs in the form of trigeminy. The baseline blood pressure was 102/77 mm Hg with a heart rate of 56 beats/min. Lexiscan was infused over a period of 20 seconds. A total of 0.4 milligrams of Lexiscan was infused. The stress phase was continued for a total of 5 minutes. Heart rate at the end of the stress phase was 75 with a blood pressure 115/63. The EKG at the peak infusion revealed no significant changes. Sestamibi was injected 20 seconds after the Lexiscan infusion. Blood pressure at the end of the recovery phase was 99/67 with a heart rate of 65 per minute. CONCLUSION: 1. No significant EKG changes with the LexiScan infusion 2. No LexiScan induced chest pain or cardiac arrhythmia 3. Normal blood pressure and heart rate response 4. Sestamibi/sestamibi perfusion scan pending; see separate report. Electronically Signed On 12-03-2020 8:02:11 CDT by April Andres M.D. [email or web address]
[2020-11-24] MEDS: regadenoson 0.4 Mg/5 ml Syringe IVP (08:15)
--- NOTE | 2020-11-24 08:22 | P.PN_ITS ---
Subjective Subjective: Interval history: This patient was admitted to hospital with complaints of atypical chest pain and bradycardia. He was found to have frequent PVCs on the monitor. Myocardial infarction was ruled out. The dose of the metoprolol was cut down to 12.5 mg p.o. twice daily. He had a myocardial perfusion imaging today. He was found to have no evidence of ischemia. Patient still may have significant PVCs on the telemetry. However he is feeling much better. Denies any unusual shortness of breath. No fever, chills or cough. No other specific complaints. Medications: Reviewed: Yes Medication Review Details: Current Medications Hydrocodone Bitart/Acetaminophen (Hydrocodone-Acetaminophen 10-325 Mg Tablet) 1 tab PO Q8H PRN PRN Reason: MODERATE PAIN Last Admin: 11/23/20 22:50 Dose: 1 tab Documented by: Allopurinol (Allopurinol 300 Mg Tablet) 300 mg PO DAILY [facility] Last Admin: 11/23/20 08:51 Dose: 300 mg Documented by: Aminophylline (Aminophylline 25 Mg/Ml Sdv 10 Ml) 25 mg IVP Q2M PRN PRN Reason: see dose instructions Stop: 11/25/20 06:23 Aspirin (Aspirin 81 Mg Ec Tablet) 81 mg PO DAILY [facility] Last Admin: 11/23/20 08:51 Dose: 81 mg Documented by: Atorvastatin Calcium (Atorvastatin 40 Mg Tablet) 20 mg PO BEDTIME [facility] Last Admin: 11/23/20 20:03 Dose: 20 mg Documented by: Clopidogrel Bisulfate (Clopidogrel 75 Mg Tablet) 75 mg PO DAILY [facility] Last Admin: 11/23/20 08:51 Dose: 75 mg Documented by: Dextrose (Dextrose 50% Syringe 50 Ml) 25 ml IVP ONCE PRN; Protocol PRN Reason: hypoglycemia protocol Dextrose (Dextrose 50% Syringe 50 Ml) 50 ml IVP PRN PRN; Protocol PRN Reason: hypoglycemia protocol Diclofenac Sodium (Diclofenac 1% Topical Gel 100 Gm) 1 applic TOPICAL QID PRN PRN Reason: JOINT PAIN Donepezil HCl (Donepezil 5 Mg Tablet) 5 mg PO BEDTIME [facility] Last Admin: 11/23/20 20:03 Dose: 5 mg Documented by: Ferrous Sulfate (Ferrous Sulfate Ec 325 Mg Tablet) 325 mg PO DAILY [facility] Last Admin: 11/23/20 08:51 Dose: 325 mg Documented by: Fluoxetine HCl (Fluoxetine 20 Mg Capsule) 20 mg PO DAILY [facility] Last Admin: 11/23/20 08:51 Dose: 20 mg Documented by: Gabapentin (Gabapentin 100 Mg Capsule) 100 mg PO BID [facility] Last Admin: 11/23/20 18:12 Dose: 100 mg Documented by: Glucagon (Glucagon 1 Mg/Ml Inj 1 Ml) 1 mg IM ONCE PRN; Protocol PRN Reason: Adult Acute Hypoglycemia Prot. Dextrose (D5w) 500 mls @ 100 mls/hr IV ONCE PRN; Protocol PRN Reason: Adult Acute Hypoglycemia Prot Insulin Glargine (Insulin Glargine 100 Units/1 Ml) 50 unit SUBCUT BID@0900,2100 [facility] Last Admin: 11/23/20 20:03 Dose: 50 unit Documented by: Insulin Human Lispro (Insulin Lispro 100 Unit/1 Ml) 0 unit SUBCUT TIDWM [facility]; Protocol Last Admin: 11/24/20 05:58 Dose: Not Given Documented by: Metoprolol Tartrate (Metoprolol Tartrate 25 Mg Tablet) 12.5 mg PO Q12H [facility] Last Admin: 11/23/20 22:48 Dose: 12.5 mg Documented by: Nitroglycerin (Nitroglycerin 0.4 Mg Sublingual Tablet) 0.4 mg SUBLINGUAL Q5M PRN PRN Reason: CHEST PAIN Stop: 11/25/20 06:23 Non-Formulary Medication (Amphetamine Sulfate) 10 mg PO DAILY [facility] Last Admin: 11/23/20 18:12 Dose: Not Given Documented by: Ondansetron HCl (Ondansetron 2 Mg/Ml Sdv 2 Ml) 4 mg IVP Q2M PRN PRN Reason: NAUSEA Regadenoson (Regadenoson 0.4 Mg/5 Ml Syringe) 0.4 mg IVP ONCE PRN PRN Reason: Lexiscan Stress Test Tramadol HCl (Tramadol 50 Mg Tablet) 50 mg PO Q8H PRN PRN Reason: mild pain Vitals/I&O/Wt Last Vital Signs Temp 98.2 F 11/23/20 19:32 Pulse 49 L 11/24/20 04:11 Resp 17 11/24/20 03:22 BP 138/74 11/24/20 03:22 Pulse Ox 98 11/24/20 03:22 11/23/20 11/24/20 11/24/20 22:59 06:59 14:59 Intake Total 280 / 530 400 / 930 Balance 280 / -170 400 / 230 Weight last 48 hrs Weight 205 lb Physical Exam Narrative: EXAM NARRATIVE: GENERAL: The patient is alert and oriented times three. Not in any acute distress. Somewhat anxious HEENT: No significant pallor, icterus or lymphadenopathy.Oral cavity: There are no mucous membrane lesions. NECK: Trachea appears to be central. No masses noted. No JVD or thyromegaly appreciated. RESPIRATORY: Chest is symmetrical. No intercostals muscle retraction or any accessory muscle activation. There is no chest wall tenderness. Breath sounds are heard bilaterally. No rales or rhonchi heard. No evidence of any consolidation. BREASTS: Deferred. HEART: The heart sounds are normal. No S3 or S4. Ejection systolic murmur grade 4/6 aortic area with this transmission to both carotids. No diastolic murmurs. No pericardial rub ABDOMEN: No vessel pulsations or distention. No tenderness. No organomegaly appreciated. Bowel sounds are normally heard. : Deferred. RECTAL: Deferred. LYMPHATIC: No lymphadenopathy noted in the neck or groin. EXTREMITIES: No edema or cyanosis. No clubbing. MUSCULOSKELETAL: No acute joint deformities or swelling SKIN: There are no significant rashes or ecchymosis NEUROPSYCHIATRIC: The patient is alert and oriented x3. Appears to be in a good mood. No tremors or rigidity noted. Data : 11/24/20 04:38 11/24/20 04:38 Other Labs: Laboratory Last Values WBC 7.4 10^3/uL (4.0-10.0) 11/24/20 04:38 RBC 4.76 10^6/uL (4.1-5.3) 11/24/20 04:38 Hgb 14.8 g/dL (11.7-16.6) 11/24/20 04:38 Hct 44.6 % (42.0-52.0) 11/24/20 04:38 MCV 93.7 fl (80-94) 11/24/20 04:38 MCH 31.1 pg (28.0-34.0) 11/24/20 04:38 MCHC 33.2 g/dL (30.0-36.0) 11/24/20 04:38 RDW 13.8 % (12.1-15.1) 11/24/20 04:38 Plt Count 157 10^3/cmm (130-400) 11/24/20 04:38 MPV 10.5 fL (7.4-10.4) H 11/24/20 04:38 Neut % (Auto) 54.9 % 11/24/20 04:38 Lymph % (Auto) 29.2 % 11/24/20 04:38 [place] % (Auto) 10.9 % 11/24/20 04:38 Eos % (Auto) 3.9 % 11/24/20 04:38 Baso % (Auto) 0.8 % 11/24/20 04:38 Neut # (Auto) 4.06 10^3/uL (1.8-7.7) 11/24/20 04:38 Lymph # (Auto) 2.2 10^3/uL (0.8-4.8) 11/24/20 04:38 [place] # (Auto) 0.8 10^3/uL (0.2-0.9) 11/24/20 04:38 Eos # (Auto) 0.3 10^3/uL (0.0-0.8) 11/24/20 04:38 Baso # (Auto) 0.1 10^3/uL (0.0-0.1) 11/24/20 04:38 Nucleated RBC % (auto) 0 % 11/24/20 04:38 Nucleated RBCs # 0.0 /100WBC 11/24/20 04:38 Sodium 143 mmol/L (136-145) 11/24/20 04:38 Potassium 3.9 mmol/L (3.5-5.1) 11/24/20 04:38 Chloride 107 mmol/L (98-107) 11/24/20 04:38 Carbon Dioxide 25 mmol/L (22-29) 11/24/20 04:38 Anion Gap 14.9 (5-19) 11/24/20 04:38 BUN 39 mg/dL (8-23) H 11/24/20 04:38 Creatinine 1.4 mg/dL (0.7-1.2) H 11/24/20 04:38 GFR Calculation 50.5 mL/min (90-130) L 11/24/20 04:38 Glucose 78 mg/dL (65-115) 11/24/20 04:38 POC Glucose 85 mg/dL (70-110) 11/24/20 05:52 Calculated Osmolality 304 mOsm/kg (285-295) H 11/24/20 04:38 Calcium 9.2 mg/dL (8.5-10.5) 11/24/20 04:38 Magnesium 2.2 mg/dL (1.7-2.3) 11/24/20 04:38 Total Bilirubin 0.4 mg/dL (0.15-1.2) 11/24/20 04:38 AST 23 U/L (0-40) 11/24/20 04:38 ALT 28 U/L (0-41) 11/24/20 04:38 Alkaline Phosphatase 78 IU/L (40-130) 11/24/20 04:38 Troponin T Baseline 46 ng/L (0-15) H 11/22/20 13:50 Troponin T 120 Minute 42.27 ng/L (0-15) H 11/22/20 15:50 Delta Troponin T -3.73 ABS# (0-10) L 11/22/20 15:50 Troponin T Hi Sens 6Hr 40.33 ng/L (0-15) H 11/22/20 20:44 Troponin T Hi Sens 6Hr Delta -5.67 ng/L (0-12) L 11/22/20 20:44 NT-Pro-B Natriuret Pep 1434 pg/mL (0-125) H 11/22/20 13:50 Total Protein 6.1 g/dL (6.6-8.7) L 11/24/20 04:38 Albumin 3.4 g/dL (3.5-5.2) L 11/24/20 04:38 Globulin 2.7 g/dL (1.3-4.6) 11/24/20 04:38 Lipase 37 U/L (13-60) 11/22/20 13:50 TSH 5.82 uIU/mL (0.27-4.20) H 11/22/20 13:50 Free T4 1.03 ng/dL (0.82-1.77) 11/22/20 13:50 A&P Assessment and plan (1) Atherosclerotic heart disease of [place] coronary artery with other forms of angina pectoris: Discussed with the patient, the implications of the myocardial perfusion imaging results. Since there is no evidence of ischemia in the EKG, echocardiogram and myocardial perfusion imaging, it may be appropriate to hold off for any further investigations at this point. Currently the patient has no chest pain. Status: Acute (2) Bradycardia: He still has murmurs and bradycardia. Overall the heart rate seems to be in the 50-60 range. Status: Acute (3) Ventricular arrhythmia: Ventricular arrhythmia could be a major contributing factor for the chest pain. We may try some antiarrhythmic drugs. Without a pacemaker, it may be dif ficult to treat the arrhythmia. Status: Acute (4) Benign essential hypertension with target blood pressure below 140/90: Blood pressure is currently under control Status: Acute (5) Dyslipidemia (high LDL; low HDL): Status: Acute Additional A&P Information The patient is wanting to go home badly. He would like to come to my office as an outpatient to discuss about further treatment options. Since he remained stable, may be appropriate to discharge him home. He may continue the metoprolol 12.5 mg p.o. twice daily. I will see him in the office in 2 weeks. Based on his clinical progress, further recommendations will be made Attestations Medical Necessity Statement*: Possible discharge home today Coding Level of Care Code Acute Provider Relations Consultant for [facility] Fwd Diagnoses Atherosclerotic heart disease of [place] coronary artery with other forms of angina pectoris I25.118 Bradycardia R00.1 Ventricular arrhythmia I49.9 Benign essential hypertension with target blood pressure below 140/90 I10 Dyslipidemia (high LDL; low HDL) E78.5
[2020-11-24] MEDS: fluoxetine 20 mg Capsule PO (09:52)
[2020-11-24] MEDS: allopurinol 300 mg Tablet PO (09:52)
[2020-11-24] MEDS: aspirin 81 mg EC Tablet PO (09:52)
[2020-11-24] MEDS: clopidogrel 75 mg Tablet PO (09:53)
[2020-11-24] MEDS: gabapentin 100 mg Capsule PO ×2 (09:53→17:02)
[2020-11-24] MEDS: ferrous sulfate EC 325 mg Tablet PO (09:53)
--- NOTE | 2020-11-24 11:15 | NMCV_ITS ---
NM gokul perf SPECT r/s* [id number] Santy Murphy Age: 65 Gender: M : 1955 Exam Date: 11/24/2020 07:08 Ordering Phys: Leighton Eagle MD Technologist: AYLA Bermeo Exam Location: [facility] Indications: CHEST PAIN STRESS TEST Please see separate stress test report in [facility] for full findings IMAGE PROTOCOL Rest/Stress 1 Lexiscan Day Radiopharmaceutical Dose (mCi) Administration Site Administered by Rest: Tc-99m 10.9 IV AYLA Velásquez Sestamibi Stress:Tc-99m 32.9 IV AYLA Velásquez Sestamibi Rest: 24-Nov-2020 60 Discovery 630 Stress: 24-Nov-2020 30 Discovery 630 0.4mg Lexiscan. Supine position only as patient was unable to lay prone. SPECT RESULTS Technical Quality: Excellent Raw Data Analysis: Normal Image Corrections: No attenuation or motion correction applied Summed Stress Score: 0 Summed Rest Score: 6 Summed Difference Score: 0 PERFUSION FINDINGS Patchy areas of decreased tracer uptake were noted in the inferior wall and apical regions. No significant reversibility was noted in these areas. FUNCTIONAL RESULTS (calculated via Gated SPECT) Stress Image LV EF (%): 56 Stress EDV (mL):116 TID: 1.14 Stress ESV (mL):51 FUNCTIONAL FINDINGS: Segmental wall motion analysis revealing no gross wall motion normalities IMPRESSIONS 1. Myocardial perfusion imaging revealing patchy areas of persistent decreased tracer uptake in the inferior wall and apical regions suggestive of myocardial scarring versus attenuation artifacts. 2. Normal LV ejection fraction 56%. 3. LV wall motion analysis revealing no gross wall motion abnormalities. 4. Mildly increased LV volume, end-systolic volume of 51 mL Minimally increased transient ischemic dilatation ratio of 1.14 may suggest endocardial ischemia. But the positive predictive value of this finding is limited Compared to the study from 08/15/2018, the left ventricular ejection fraction has improved. Dr April Andres MD [facility] (Electronically Signed) Final Date: 24 November 2020 13:46 S
[2020-11-24 12:29] LABS: Glucose Point of Care 87 mg/dL (70-110)
[2020-11-24] MEDS: metoprolol tartrate 25 mg Tablet 12.5 MG PO (12:43)
[2020-11-24] MEDS: HYDROcodone-acetaminophen 10-325 mg Tablet 1 TAB PO (16:59)
[2020-11-24 17:10] LABS: Glucose Point of Care 203 mg/dL (70-110)
[2020-11-24] MEDS: insulin lispro 100 unit/1 mL SUBCUT (17:36)
--- NOTE | 2020-11-24 19:17 | PC.NURSE ---
pt education provided to self and spouse, no questions or concerns,pt VS stable upon departure.
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
--- NOTE | 2020-11-26 08:49 | PC.SOCIAL ---
discharge follow up call made, spoke with patients . she reports patient slept most of the day yesterday but is feeling much better. she is picking up new medications today from the pharmacy. follow up appointments have been made, she only needs follow up with Dr. Dmitry andres. Nurse will make that appointment. denies any questions or concerns at this time.
--- NOTE | 2020-11-26 08:59 | PC.SOCIAL ---
discharge follow up call made, spoke with patients . reports patient slept most of the day yesterday but is overall feeling better. is picking up new medications from the pharmacy today. she denies questions regarding medications. patient is aware of follow up appointments with pcp and pain clinic. nurse will make follow up appointment with dr. prieto. no questions or concerns from at this time.
== END 2020-11-24 19:18 | disposition home or self-care (01) ==
LOC: ER 18:41 → CSU 20:32
PROVIDERS: Admitting Provider Internal Medicine; Emergency Provider Emergency Medicine; PCP Family Medicine; Visit Provider Internal Medicine
DX: I25.118 Atherosclerotic heart disease of native coronary artery with other forms of angina pectoris (principal); I49.9 Cardiac arrhythmia, unspecified; E78.5 Hyperlipidemia, unspecified; E03.8 Other specified hypothyroidism; Z79.899 Other long term (current) drug therapy; I49.3 Ventricular premature depolarization; R07.9 Chest pain, unspecified; R55 Syncope and collapse; M25.512 Pain in left shoulder; G89.29 Other chronic pain; M54.2 Cervicalgia; I11.0 Hypertensive heart disease with heart failure; I50.9 Heart failure, unspecified; J44.9 Chronic obstructive pulmonary disease, unspecified; Z95.1 Presence of aortocoronary bypass graft; Z79.4 Long term (current) use of insulin; Z79.82 Long term (current) use of aspirin; Z82.49 Family history of ischemic heart disease and other diseases of the circulatory system; Z83.3 Family history of diabetes mellitus
CPT/HCPCS: 36415; 36416; 70450; 70496; 70498; 71045; 72131; 78452; 80053; 82962; 83690; 83735; 83880; 84439; 84443; 84484; 85025; 93005; 93017; 93306; 96372; 96374; 99285; A9500; G0378; J1815 ×2; J2270; J2785; Q9967

== ENCOUNTER → 2020-12-03 17:22 | Outpatient (BNVA) | payer OTHER, SELFPAY | PROVIDERS: PCP Family Medicine; Visit Provider Internal Medicine Cardiovascular Disease | DX: I25.118 Atherosclerotic heart disease of native coronary artery with other forms of angina pectoris (principal); R00.1 Bradycardia, unspecified; Z01.818 Encounter for other preprocedural examination | CPT/HCPCS: 80048; 85025; 85610; 86850; 86900; 87635 ==

== ENCOUNTER 2020-12-07 06:13 | Outpatient (CLI) | payer OTHER, SELFPAY ==
[2020-12-07] VITALS (29 sets, daily range): BP systolic 110–207; BP diastolic 55–103; PULSE 59–90; RESP 18–24; TEMP 36.6–36.8; O2SAT 94–100; BMI 29.4
--- NOTE | 2020-12-07 06:34 | XACV_ITS ---
Exam Room: 1 Ht: 178 cm Wt: 93 kg BSA: 2.17 m2 Gender: Male : 1955 Any Known Allergies: No known allergies Exam Priority: Routine Procedure(s): Procedure Description: Diagnostic procedure Procedure Description: PCI procedure Procedure Description: Left Heart Catheterization Procedure Description: Venous Graft Catheterization Procedure Description: LAW Graft Catheterization Procedure Description: PTCA Procedure Description: Coronary Angiography Dmitry WALTERS; Diagnostic Cath Status: Elective Diagnostic Findings * Coronary angiography shows right dominance. * Left main is a medium caliber vessel which was found to have a tapering narrowing of around 20% distally. * The left anterior descending artery is a medium caliber vessel which was found to have severe diffuse disease in the mid segment. After the second septal cake icer and packer, the artery appears to be totally occluded. The first diagonal branch was found to have a long stented segment proximally. There is a high-grade around 80% in-stent stenosis noted. * Circumflex artery was found to have mild to moderate diffuse disease proximally. The ostium of the circumflex artery was found to have a tubular 50% narrowing. The artery gives off a large obtuse marginal branch which is moderate diffuse disease proximally. The distal artery was found to be subtotally occluded. Competitive blood flow was noted in the terminal vessels. The AV groove branch of the artery was found to have mild diffuse disease. * The right coronary artery was found to have moderate to severe diffuse disease in the proximal to mid segment. After the second RV branch, the artery appears to be totally occluded. * The saphenous venous graft to the obtuse marginal artery was selectively engaged. The venous graft was found to be patent. The artery distal to the anastomosis was found to have no significant stenotic lesions. * The saphenous venous graft to the diagonal branch was found to be totally occluded. * The saphenous venous graft to the PLV branch of the right coronary artery was found to be patent with no significant stenotic lesions. The artery distal to the anastomosis was found to have minimal intimal irregularities. * The LAW to the LAD was found to be widely patent. The LAD distal to the anastomosis was found to have mild diffuse disease. No significant stenotic lesions were noted. PCI Status: Elective PCI Indication: Other Interventional Findings * Procedure details: We engaged left main artery with XB 3.5 guide catheter. IV heparin was administered to maintain an ACT above 250 seconds. A 0.014 run-through guidewire was used to cross the stenosis in diagonal artery. A 3.0 x 12 mm NC balloon was used to perform balloon angioplasty of in-stent restenosis. At this time final angiogram was performed that showed excellent stent expansion, CARLOS-3 flow and no residual stenosis. Guidewire and guide catheter were removed. Patient left the Box Order Person in a stable condition. * 1st Diagonal: 100% stenosis treated with a MDT NC EUPHORA RX [id number] BALLOON. 0% residual stenosis, CARLOS: 3 flow. Conclusions 1. Patient has prior CABG. 2. 65-year-old white male with history of coronary disease, status post coronary artery bypass surgery, status post PCI, is presenting with increasing episodes of chest pain. He had a myocardial perfusion imaging which revealed elevated transient ischemic dilatation ratio. Because of the patient's ongoing symptoms with recent worsening, in order to further evaluate his coronary status as well as the graft status, a cardiac catheterization was recommended. Patient underwent left heart catheterization with left and right coronary angiogram today. The findings are as follows. 3. Total occlusion of the mid LAD, circumflex and right coronary artery. Patent LAW to the LAD, venous graft to the obtuse marginal artery and venous graft to the PLV branch of the right coronary artery. High-grade stenosis in the stented segment of the first diagonal artery. LVEDP of 21 mmHg. 4. I reviewed and discussed the cardiac resident data with the Dr. Alexandra. It was thought to be appropriate to consider PCI of the in-stent stenosis in the first diagonal branch of the left anterior descending artery. At this point, Dr. Alexandra took over further management of this patient. 5. Successful revascularization of diagonal artery with balloon angioplasty. 6. 1st Diagonal was treated with a Balloon. Recommendations * Aspirin and Plavix. * High intensity statin therapy. * Aggressive risk factor modification. * Outpatient cardiology follow-up. Interventional RX Recommendation: PCI w/o planned CABG Diagnostic RX Recommendation: PCI w/o planned CABG Anticoagulation: Heparin LV EDP: 21 mmHg Left Ventriculography Findings: * LV gram was not performed because of the concern about the dye overload. Pressures Phase:Rest AO : 144 / 93 ( 116 ) @ 6:30:00 AM 166 / 75 ( 108 ) @ 6:47:00 AM 168 / 74 ( 112 ) @ 6:47:00 AM 129 / 73 ( 98 ) @ 7:01:00 AM LV : 189 / -6 / 21 @ 6:46:00 AM 190 / -8 / 16 @ 6:47:00 AM Valves Phase:DefaultPhase AV : 9.0 @ 8:19:40 AM AV Mean Gradient: 25.0 @ 8:19:40 AM Clinical Evaluation EBL: 5mL-10mL Procedural Details Pre-Procedure Time Out. Identified patient by full name and date of as verbalized by the patient/guarantor. Does the consent match the physician's order: Yes. Accurate & Complete Informed Consent: Yes. Inpatient/Outpatient History & Physical on Chart: Yes. If H&P is completed, is and addenduem needed: N/A. right groin was prepped with chloroprep then draped in the usual sterile fashion. Relevant Radiology Images available: Yes. Pre-op teaching completed and patient verbalized understanding. The risks, benefits, and alternatives of sedation and/or procedure were discussed by physician. The patient agrees to continue. Procedure started. [facility] Clinical Fraility Score: 3: Managing Well. Box Order Person Indications: Worsening Angina. Chest Pain Symptom Assessment: Typical Angina Symptoms. Cardiovascular Instability: No. Correct patient, site and procedure confirmed by cath team. PERRLA. Strong, equal hand battery plate remover bilaterally. Lungs clear x 5 lobes. IV Site on Arrival: 20 gauge in the left wrist. IV Fluids: 0.9% NaCl at KVO. 0 mL infused prior to cath lab radiology technician. Oxygen started at 2liters/min via nasal canula. Physician notified. Patient's family in CPRU room #4. Dr. Andres will update after the procedure. Equipment: 5F - Femoral. Heparinized Saline (2 units/mL), 1000 mL bag. Kit, Micropuncture. Cardiac Cath Pack. ACIST Manifold Kit Model BT 2000. Physician arrived. Physician scrubbed in. Immediate Pre-Procedure Time Out. Correct Patient: Yes; Correct Procedure: Yes; Correct Site: Yes; Correct Patient Position: Yes; Correct Supplies: Yes; Dried Flammable Prep: Yes; Blood Products Available: N/A;. Lidocaine 1% infiltrated to the right groin. Arterial access obtained with micropuncture set. Pre Procedural Pulses: bilateral dorsalis pedis was 2+. Pre Procedural Pulses: bilateral posterior tibial was 2+. Pre Procedural Pulses: bilateral radial was 2+. Baseline sample Acquired. HR: 60 BPM. Multiple views taken of left coronary artery. Catheter removed over the standard wire. A 5 austrian JL4 catheter in over wire. A 5 austrian JR4 catheter in over wire. Multiple views taken of right coronary artery. Sequential SVG's to OM 1 & 2 visualized and patent. SVG's to Diaganol visualized and occluded. LAW to LAD visualized and patent. Catheter removed over the standard wire. A 5 austrian RCB catheter in over wire. SVG's to RCA visualized and patent. Catheter removed over the standard wire. A 5 austrian Angled Pig catheter in over wire. EDP Sample taken: LV 189/-7,21; HR: 53 BPM; SpO2: 99%. Pullback taken: LV 190/-9,16; AO 166/75(108); Mean: 25mmHg, Peak to Peak: 9mmHg, SEP: 16sec/min; HR: 58 BPM; SpO2: 99%. Catheter removed over the standard wire. Dr Alexandra scrubbed in to perform PCI. Sheath upsized to a 6 Fr. Patient's family updated. 6 austrian XB 3.5 guide catheter was inserted over the wire. Runthrough guidewire was advanced through the guide catheter to lesion in the 1st diaganol. Dr Andres scrubbed out. Inflation number : 1 Rosemary CORDON EUPHORA RX [id number] BALLOON was prepped and advanced across the 1st Diag , then inflated to 18 BRENDAN for 0:26 seconds. Balloon out. Guidewire out. Results checked. Guide catheter out. A Right femoral angiogram was performed to determine safe placement of closure device. Sheath(s) sutured into position with 2-0 silk and sterile 4x4's and Op-site applied over the site. No oozing or signs and symptoms of hematoma noted. Post Procedure: Pulses reassessed and unchanged. No VTE prophylaxis required. PERRLA. Strong, equal hand battery plate remover bilaterally. Medication's Wasted: Lidocaine 1% = 3 mL. A Suture was successful obtaining hemostatsis at the Right Femoral artery insertion site. Total IV fluids: 100 mL. Medication's Wasted: Heparin = 500 Units. PCI Indication/Diagnosis: Other; Severe in-stent restenosis of the 1st diagonal stent. POBA performed. Complications: none. Estimated blood loss: 5mL-10mL. Procedure completed. Patient transferred by bed to 1st floor. Vital chart was stopped. Access Site Site: Right Femoral artery Sheath Size: 5 Fr Hemostasis Method: Suture Hemostasis Success: Successful Procedure Medications Start: 7:14 AM Stop: 7:14 AM Medication: Versed Amount: 1 mg Route: I.V. Start: 7:14 AM Stop: 7:14 AM Medication: Fentanyl Amount: 50 mcg Route: I.V. Start: 7:34 AM Stop: 7:34 AM Medication: Heparin Amount: 1500 units Route: I.V. Start: 7:35 AM Stop: 7:35 AM Medication: Versed Amount: 1 mg Route: I.V. Start: 7:35 AM Stop: 7:35 AM Medication: Fentanyl Amount: 50 mcg Route: I.V. Start: 7:58 AM Stop: 7:58 AM Medication: Heparin Amount: 7000 units Route: I.V. Start: 7:47 AM Stop: 7:47 AM Medication: Hydralazine Amount: 10 mg Route: I.V. Start: 8:01 AM Stop: 8:01 AM Medication: Hydralazine Amount: 10 mg Route: I.V. I, the attending physician, have reviewed and verified all procedure medications. Yes, all medications given per verbal order History/Risk Factors Hypertension: Yes Dyslipidemia: Yes Peripheral Arterial Disease (PAD): No Myocardial Infarction ([place]): No Obesity: No Renal Disease: Yes Tobacco Use: Never Prior Interventions PCI: Yes CABG: Yes Valve Surgery: No Date of PCI: 11/08/2017 Report Signatures Interventional Workflow Finalized by Francesco Alexandra MD on 12/20/2020 08:12 PM Diagnostic Workflow Finalized by Dr April Andres MD [facility] on 12/07/2020 02:54 PM
--- NOTE | 2020-12-07 07:06 | W.PM.OPSUD ---
Surgery/Procedure H&P Update DATE OF PROCEDURE: December 07, 2020 DATE H&P PERFORMED: 12/03/20 H&P UPDATE INFORMATION: I have reviewed H&P completed within last 30 days, I have examined patient prior to procedure and No changes to prior documentation PREOP DIAGNOSIS: ASHD PRIMARY INDICATION FOR PROCEDURE: Chest pain/abnormal perfusion scan PLANNED PROCEDURE: Operation Date: 12/07/20 07:00 Proposed Procedures p Cardiac Catheterization(Left) - April Andres MD PATIENT REASSESSED PRIOR TO SEDATION, WITH NO CHANGE NOTED: Yes PHYSICAL EXAM: alert, oriented x 3, clear to auscultation bilaterally and regular rate & rhythm AIRWAY EVAL/ANESTHESIA PLAN: normal airway, see other exam findings, ASA II, ASA III, Monitored Anesthesia, Local Anesthesia, Risks, benefits & alternatives of sedation and/or procedure discussed and Patient agrees to continue as planned
[2020-12-07] MEDS: gabapentin 100 mg Capsule PO ×3 (09:22→20:59)
[2020-12-07] MEDS: cholecalciferol (vitamin D3) 1,000 unit Tablet 3000 UNIT PO (09:23)
[2020-12-07] MEDS: TRAMadol 50 mg Tablet PO ×2 (09:23→20:58)
[2020-12-07] MEDS: fluoxetine 20 mg Capsule PO (09:23)
[2020-12-07] MEDS: donepezil 5 MG Tablet 10 MG PO (09:23)
[2020-12-07] MEDS: HYDROcodone-acetaminophen 10-325 mg Tablet 1 TAB PO ×2 (09:23→20:59)
[2020-12-07] MEDS: omega-3 fatty acids 1,000 mg Capsule 1000 MG PO ×2 (09:24→18:12)
[2020-12-07] MEDS: allopurinol 300 mg Tablet PO (09:24)
[2020-12-07] MEDS: atorvastatin 40 mg Tablet 20 MG PO (09:24)
[2020-12-07] MEDS: ferrous sulfate EC 325 mg Tablet PO (09:25)
--- NOTE | 2020-12-07 09:37 | PC.CHAP ---
Pastoral Care Encounter/Spiritual Assessment Type of Contact [] Declined bias cutter helper visit [] Patient/Family/Request visit [] Outpatient visit [] Follow-up visit [] Physician referral [] Code/Alert [x] Routine visit [] Staff referral [] Actively dying [] Patient sleeping [x] Family support [] [] Out of room [] Palliative care [] [] Receiving care in room [] Pre-surgical visit [] Trauma [] Long length of stay [] ICU visit [] Other: Relational/Emotional Strength [] Patient feels connected with others/family/visitors/staff [] Distress [] Loneliness/isolation [] Abandonment Spirituality of Patient [] Person of Bety [] Attends Latter Day of their Bety [] Believes in Prayer [] Reads Bible or Lutheran materials [] There are Spiritual issues to be addressed Lock Expert Interventions [x] Prayer x[] Active listening [x] Non-anxious presence [x] Spiritual/emotional support [] Crisis/trauma care [] Spiritual counseling [] Bereavement support [] Provided bereavement packet [] Provided Bible/devotional materials [] Provided toy/stuffed animal, coloring book to patient or family member [] Provided Communion [] Anointing/[place] [] Salvation [x] Completed spiritual assessment [] Other: Impact on Illness or Injury [] Angry [] Fearful [] Anxious [] Often cries [] Exhaustion [] Unable to work [] Unable to attend gnosticism [] Unable to walk/stand [] Unable to read [] Unable to drive [] Unable to eat/drink [] Unable to sleep [] Unable to be with family [] Patient intubated [] Other: Summary just arrived in [place]... feeling pain from procedure .. present Time spent with patient 5 min
[2020-12-07 10:19] LABS: Glucose Point of Care 135 mg/dL (70-110)
[2020-12-07 11:26] LABS: Glucose Point of Care 116 mg/dL (70-110)
[2020-12-07 12:13] LABS: Partial Thromboplastin Time 63.7 SECONDS (23.9-36.7)
--- NOTE | 2020-12-07 13:15 | PC.NURSE ---
Sheath removal Explained procedure to pt. right femoral artery palpated. 6 F sheath removed on right groin. sheath tip intact. manual pressure held. hemostasis achieved. No hematoma, bleeding or swelling. activity restrictions discuss to pt. pt verbalizes understanding. call light placed to pt.
[2020-12-07] MEDS: diclofenac 1% Topical Gel 100 gm TOPICAL ×2 (14:29→20:59)
[2020-12-07 17:01] LABS: Glucose Point of Care 158 mg/dL (70-110)
[2020-12-07] MEDS: insulin glargine 100 units/1 mL 50 UNIT SUBCUT (18:09)
[2020-12-07] MEDS: insulin lispro 100 unit/1 mL SUBCUT (20:58)
[2020-12-07] MEDS: metoprolol tartrate 25 mg Tablet 12.5 MG PO (20:59)
[2020-12-07 21:00] LABS: Glucose Point of Care 237 mg/dL (70-110)
--- NOTE | 2020-12-07 21:49 | PC.NURSE ---
Patient ambulated in mae with nurse. Right groin site WNL. VSS.
[2020-12-08 04:00] VITALS: BP 179/81; PULSE 74; RESP 20; TEMP 36.6; O2SAT 94
[2020-12-08 05:06] VITALS: PULSE 63
[2020-12-08 06:40] LABS: Glucose Point of Care 79 mg/dL (70-110)
[2020-12-08] MEDS: cholecalciferol (vitamin D3) 1,000 unit Tablet 3000 UNIT PO (09:41)
[2020-12-08] MEDS: metoprolol tartrate 25 mg Tablet 12.5 MG PO (09:41)
[2020-12-08] MEDS: omega-3 fatty acids 1,000 mg Capsule 1000 MG PO (09:42)
[2020-12-08] MEDS: allopurinol 300 mg Tablet PO (09:42)
[2020-12-08] MEDS: donepezil 5 MG Tablet 10 MG PO (09:42)
[2020-12-08] MEDS: gabapentin 100 mg Capsule PO (09:42)
[2020-12-08] MEDS: aspirin 81 mg EC Tablet PO (09:42)
[2020-12-08] MEDS: ferrous sulfate EC 325 mg Tablet PO (09:42)
[2020-12-08] MEDS: clopidogrel 75 mg Tablet PO (09:42)
[2020-12-08] MEDS: fluoxetine 20 mg Capsule PO (09:42)
[2020-12-08] MEDS: atorvastatin 40 mg Tablet 20 MG PO (09:42)
[2020-12-08] MEDS: HYDROcodone-acetaminophen 10-325 mg Tablet 1 TAB PO (09:44)
[2020-12-08] MEDS: TRAMadol 50 mg Tablet PO (09:45)
[2020-12-08 09:58] VITALS: BP 178/85; PULSE 88; RESP 20
--- NOTE | 2020-12-08 10:14 | P.PN_ITS ---
Subjective Subjective: Interval history: The patient is feeling okay with no chest pain or chest tightness. No new symptoms. The cardiac colorization findings -please refer to the report from yesterday Medications: Reviewed: Yes Medication Review Details: Current Medications Hydrocodone Bitart/Acetaminophen (Hydrocodone-Acetaminophen 10-325 Mg Tablet) 1 tab PO Q8H PRN PRN Reason: SEVERE pain Last Admin: 12/08/20 09:44 Dose: 1 tab Documented by: Allopurinol (Allopurinol 300 Mg Tablet) 300 mg PO DAILY [facility] Last Admin: 12/08/20 09:42 Dose: 300 mg Documented by: Aspirin (Aspirin 81 Mg Ec Tablet) 81 mg PO DAILY [facility] Last Admin: 12/08/20 09:42 Dose: 81 mg Documented by: Atorvastatin Calcium (Atorvastatin 40 Mg Tablet) 20 mg PO DAILY [facility] Last Admin: 12/08/20 09:42 Dose: 20 mg Documented by: Cetirizine HCl (Cetirizine 10 Mg Tablet) 10 mg PO DAILY PRN PRN Reason: Allergic Reaction Clopidogrel Bisulfate (Clopidogrel 75 Mg Tablet) 75 mg PO DAILY [facility] Last Admin: 12/08/20 09:42 Dose: 75 mg Documented by: Dextrose (Dextrose 50% Syringe 50 Ml) 25 ml IVP ONCE PRN; Protocol PRN Reason: hypoglycemia protocol Dextrose (Dextrose 50% Syringe 50 Ml) 50 ml IVP PRN PRN; Protocol PRN Reason: hypoglycemia protocol Diclofenac Sodium (Diclofenac 1% Topical Gel 100 Gm) 0 applic TOPICAL QID [facility] Last Admin: 12/07/20 20:59 Dose: 1 applic Documented by: Donepezil HCl (Donepezil 5 Mg Tablet) 10 mg PO DAILY [facility] Last Admin: 12/08/20 09:42 Dose: 10 mg Documented by: Ferrous Sulfate (Ferrous Sulfate Ec 325 Mg Tablet) 325 mg PO DAILY [facility] Last Admin: 12/08/20 09:42 Dose: 325 mg Documented by: Fluoxetine HCl (Fluoxetine 20 Mg Capsule) 20 mg PO DAILY [facility] Last Admin: 12/08/20 09:42 Dose: 20 mg Documented by: Gabapentin (Gabapentin 100 Mg Capsule) 100 mg PO TID [facility] Last Admin: 12/08/20 09:42 Dose: 100 mg Documented by: Glucagon (Glucagon 1 Mg/Ml Inj 1 Ml) 1 mg IM ONCE PRN; Protocol PRN Reason: Adult Acute Hypoglycemia Prot. Dextrose (D5w) 500 mls @ 100 mls/hr IV ONCE PRN; Protocol PRN Reason: Adult Acute Hypoglycemia Prot Insulin Glargine (Insulin Glargine 100 Units/1 Ml) 50 unit SUBCUT BID [facility] Last Admin: 12/07/20 18:09 Dose: 50 unit Documented by: Insulin Human Lispro (Insulin Lispro 100 Unit/1 Ml) 0 unit SUBCUT WM&BEDTIME [facility]; Protocol Last Admin: 12/08/20 07:55 Dose: Not Given Documented by: Metoprolol Tartrate (Metoprolol Tartrate 25 Mg Tablet) 12.5 mg PO Q12H [facility] Last Admin: 12/08/20 09:41 Dose: 12.5 mg Documented by: Nitroglycerin (Nitroglycerin 0.4 Mg Sublingual Tablet) 0.4 mg SUBLINGUAL Q5M PRN PRN Reason: Chest Pain Non-Formulary Medication (Amphetamine Sulfate) 10 mg PO DAILY [facility] Non-Formulary Medication (Coenzyme Q10 [Ultra Coq10]) 100 mg PO DAILY [facility] Non-Formulary Medication (Naloxone) 1 spray INTRANASAL Q2M PRN PRN Reason: opioid overdose [id number] Ethyl Esters ([place]-3 Fatty Acids 1,000 Mg Capsule) 1,000 mg PO BID [facility] Last Admin: 12/08/20 09:42 Dose: 1,000 mg Documented by: Tramadol HCl (Tramadol 50 Mg Tablet) 50 mg PO Q8H PRN PRN Reason: MODERATE pain Last Admin: 12/08/20 09:45 Dose: 50 mg Documented by: Vitamin D (Cholecalciferol (Vitamin D3) 1,000 Unit Tablet) 3,000 unit PO DAILY [facility] Last Admin: 12/08/20 09:41 Dose: 3,000 unit Documented by: Vitals/I&O/Wt Last Vital Signs Temp 98 F 12/08/20 04:00 Pulse 88 12/08/20 09:58 Resp 20 H 12/08/20 09:58 BP 178/85 12/08/20 09:58 Pulse Ox 94 12/08/20 04:00 12/07/20 12/08/20 12/08/20 22:59 06:59 14:59 Intake Total 600 / 600 120 / 120 Output Total 950 / 950 Balance -950 / -950 600 / -350 120 / 120 Weight last 48 hrs Weight 205 lb Physical Exam Narrative: EXAM NARRATIVE: GENERAL: The patient is alert and oriented times three. Not in any acute distress. HEENT: No significant pallor, icterus or lymphadenopathy.Oral cavity: There are no mucous membrane lesions. NECK: Trachea appears to be central. No masses noted. No JVD or thyromegaly appreciated. RESPIRATORY: Chest is symmetrical. No intercostals muscle retraction or any accessory muscle activation. There is no chest wall tenderness. Breath sounds are heard bilaterally. No rales or rhonchi heard. No evidence of any consolidation. BREASTS: Deferred. HEART: The heart sounds are normal. No S3 or S4. Short systolic murmur the left sternal border. No pericardial rub ABDOMEN: No vessel pulsations or distention. No tenderness. No organomegaly appreciated. Bowel sounds are normally heard. : Deferred. RECTAL: Deferred. LYMPHATIC: No lymphadenopathy noted in the neck or groin. EXTREMITIES: No edema or cyanosis. No clubbing. Peripheral pulses are palpated in fairly good volume and amplitude. The right groin has no hematoma or bleeding MUSCULOSKELETAL: No acute joint deformities or swelling SKIN: There are no significant rashes or ecchymosis NEUROPSYCHIATRIC: The patient is alert and oriented x3. Appears to be in a good mood. No tremors or rigidity noted. Data : 12/08/20 10:25 A&P Assessment and plan (1) Atherosclerotic heart disease of [place] coronary artery with other forms of angina pectoris: The cardiac catheterizationv revealed a patent venous graft to the PLV branch of the right coronary artery, LAW to the LAD and saphenous venous graft to the obtuse marginal artery. The saphenous venous graft to the first diagonal is occluded. There is a high-grade lesion in the stented segment of the first diagonal artery. Patient had a PCI of this lesion by Dr. Alexandra. Status: Acute (2) PVCs (premature ventricular contractions): Significantly improved since the intervention. Status: Acute (3) Long-term insulin use in type 2 diabetes: Continue on the aggressive treatment. Status: Acute (4) Dyslipidemia (high LDL; low HDL): Continue on the current medications. Status: Acute Attestations Medical Necessity Statement*: Since the patient is remaining stable with no new symptoms, he is being discharged home today. 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
[2020-12-08 10:30] VITALS: BP 178/85; PULSE 88; RESP 20
--- NOTE | 2020-12-08 10:40 | PC.NURSE ---
Discharge Note Patient discharged to home via private vehicle accompanied by spouse. Discharge instructions reviewed with patient and/or brewery representative. Mobile pharmacy medications and/or prescriptions provided. Belongings/home medications returned.
== END 2020-12-08 10:40 | disposition home or self-care (01) ==
LOC: CCL 06:15 → CSU 12-08 09:59
PROVIDERS: Internal Medicine; PCP Family Medicine; Visit Provider Internal Medicine Cardiovascular Disease
DX: I25.118 Atherosclerotic heart disease of native coronary artery with other forms of angina pectoris (principal); I49.3 Ventricular premature depolarization; R94.8 Abnormal results of function studies of other organs and systems; E78.5 Hyperlipidemia, unspecified; I47.0 Re-entry ventricular arrhythmia; Z79.4 Long term (current) use of insulin; I13.10 Hypertensive heart and chronic kidney disease without heart failure, with stage 1 through stage 4 chronic kidney disease, or unspecified chronic kidney disease; N18.30 Chronic kidney disease, stage 3 unspecified; I50.43 Acute on chronic combined systolic (congestive) and diastolic (congestive) heart failure; E11.22 Type 2 diabetes mellitus with diabetic chronic kidney disease; Z95.1 Presence of aortocoronary bypass graft
CPT/HCPCS: 36415; 36416; 82962; 85730; 92920; 93459; 96372; C1725; C1769; C1887; C1894; G0378; J0360; J1644; J1815 ×2; J2250; J3010; J3490; J7030; Q9967

== ENCOUNTER → 2020-12-24 14:07 | Outpatient (BNVA) | payer OTHER, SELFPAY | PROVIDERS: PCP Family Medicine; Visit Provider Nurse Practitioner Family | DX: I25.118 Atherosclerotic heart disease of native coronary artery with other forms of angina pectoris (principal) | CPT/HCPCS: 80048 ==

== ENCOUNTER → 2020-12-28 14:01 | Outpatient (BNVA) | payer OTHER, SELFPAY | PROVIDERS: PCP Family Medicine; Visit Provider Specialist | DX: G31.84 Mild cognitive impairment of uncertain or unknown etiology (principal); G43.711 Chronic migraine without aura, intractable, with status migrainosus; M54.9 Dorsalgia, unspecified; F33.1 Major depressive disorder, recurrent, moderate; F60.5 Obsessive-compulsive personality disorder; I50.22 Chronic systolic (congestive) heart failure | CPT/HCPCS: 99213; 99214 ==

== ENCOUNTER → 2021-01-12 14:54 | Outpatient (BNVA) | payer OTHER, SELFPAY | PROVIDERS: PCP Family Medicine; Visit Provider Internal Medicine | DX: E11.65 Type 2 diabetes mellitus with hyperglycemia (principal); E11.59 Type 2 diabetes mellitus with other circulatory complications; E11.22 Type 2 diabetes mellitus with diabetic chronic kidney disease; N18.30 Chronic kidney disease, stage 3 unspecified; G31.84 Mild cognitive impairment of uncertain or unknown etiology; E16.0 Drug-induced hypoglycemia without coma; T38.3X5A Adverse effect of insulin and oral hypoglycemic [antidiabetic] drugs, initial encounter; F90.2 Attention-deficit hyperactivity disorder, combined type; Z79.4 Long term (current) use of insulin | CPT/HCPCS: 99214 ==

== ENCOUNTER → 2021-02-10 13:43 | Outpatient (BNVA) | payer OTHER, SELFPAY | PROVIDERS: PCP Family Medicine; Visit Provider Anesthesiology | DX: G89.29 Other chronic pain (principal); M54.50 Low back pain, unspecified; M54.2 Cervicalgia; Z79.899 Other long term (current) drug therapy; Z79.891 Long term (current) use of opiate analgesic; Z87.891 Personal history of nicotine dependence | CPT/HCPCS: 99214 ==

== ENCOUNTER → 2021-04-14 14:17 | Outpatient (BNVA) | payer OTHER, SELFPAY | PROVIDERS: PCP Family Medicine; Visit Provider Internal Medicine | DX: E11.65 Type 2 diabetes mellitus with hyperglycemia (principal); I13.0 Hypertensive heart and chronic kidney disease with heart failure and stage 1 through stage 4 chronic kidney disease, or unspecified chronic kidney disease; N18.30 Chronic kidney disease, stage 3 unspecified; G31.84 Mild cognitive impairment of uncertain or unknown etiology; E11.59 Type 2 diabetes mellitus with other circulatory complications; Z79.4 Long term (current) use of insulin; E16.0 Drug-induced hypoglycemia without coma; T38.3X5A Adverse effect of insulin and oral hypoglycemic [antidiabetic] drugs, initial encounter; F90.2 Attention-deficit hyperactivity disorder, combined type; I25.10 Atherosclerotic heart disease of native coronary artery without angina pectoris; I50.9 Heart failure, unspecified | CPT/HCPCS: 99214 ==

== ENCOUNTER → 2021-04-28 15:03 | Outpatient (BNVA) | payer OTHER, SELFPAY | PROVIDERS: PCP Family Medicine; Visit Provider Internal Medicine Cardiovascular Disease | DX: I13.0 Hypertensive heart and chronic kidney disease with heart failure and stage 1 through stage 4 chronic kidney disease, or unspecified chronic kidney disease (principal); I25.118 Atherosclerotic heart disease of native coronary artery with other forms of angina pectoris; E11.65 Type 2 diabetes mellitus with hyperglycemia; N18.31 Chronic kidney disease, stage 3a; E11.22 Type 2 diabetes mellitus with diabetic chronic kidney disease | CPT/HCPCS: 99214 ==

== ENCOUNTER 2021-04-29 10:53 | Emergency (ER) | payer OTHER, SELFPAY ==
[2021-04-29 11:04] VITALS: BP 145/79; PULSE 74; RESP 16; TEMP 36.7; O2SAT 97; BMI 30.9
--- NOTE | 2021-04-29 11:40 | XRR_ITS ---
PROCEDURE INFORMATION: Exam: XR Chest Exam date and time: 04/29/2021 12:44 PM Age: 66 years old Clinical indication: Shortness of breath; Additional info: SOB, edema limbs TECHNIQUE: Imaging protocol: XR of the chest. Views: 1 view. COMPARISON: CR XR chest 1V portable [id number] 11/22/2020 1:05 PM FINDINGS: Lungs: Unremarkable. No consolidation. Pleural spaces: Unremarkable. No pleural effusion. No pneumothorax. Heart/Mediastinum: Unremarkable. No cardiomegaly. Bones/joints: Metallic sternotomy wires are in place. XR/XR chest 1V portable [id number] IMPRESSION: 1. No acute findings. 2. Status post sternotomy
--- NOTE | 2021-04-29 13:31 | ECG_ITS ---
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 Measurements Intervals [place] Rate: 50 P: SD: QRS: -18 QRSD: 109 T: -34 QT: 414 QTc: 377 Interpretive Statements Sinus bradycardia with a first-degree AV block. Frequent supraventricular ectopics VOLTAGE CRITERIA FOR LVH [MEETS CRITERIA IN ONE OF: R(aVL), S(V1), R(V5), R(V5/V6)+S(V1)] NONSPECIFIC T-WAVE ABNORMALITY Compared to ECG 11/22/2020 16:11:59 T-wave abnormality now present Ventricular premature complex(es) no longer present Myocardial infarct finding no longer present Electronically Signed On 04-29-2021 21:51:17 CDT by April Andres M.D. [id number]
--- NOTE | 2021-04-29 13:32 | ED_ITS ---
HPI - Extremity Problem General: Chief complaint: Extremity Problem,Nontraumatic Stated complaint: swelling Time Seen by Provider: 04/29/21 13:00 History of Present Illness: Patient said he increased shortness of breath on waking today. Says he feels better now. Has been having extremity edema for the last few months. Saw Dr. Andres for appointment yesterday afternoon and was deemed fine at that time. Patient also sees kidney doctor and patient was taken off of water pill a couple months ago. Was recently placed on amlodipine. Patient is diabetic and has a history of heart disease. Associated symptoms: Deny chest pain, fever(s) or rash Review of Systems Const: Denies: fever(s), chills or body aches Eyes: Denies: eye discomfort ENMT: Denies: throat pain Card: Reports: other (Chronic edema); Denies: chest pain Resp: Reports: other (Shortness of breath and on waking this morning is better now.); Denies: dyspnea GI: Denies: abdominal pain, nausea or vomiting Skin/Breast: Denies: rash Neuro: Denies: headache(s) Psych: Denies: depression or suicidal ideation PFS ED PFSH: Medical History Acute on chronic combined systolic and diastolic CHF, NYHA class 2 Atherosclerosis of coronary artery of [place] heart without angina pectoris Attention deficit hyperactivity disorder (ADHD), predominantly hyperactive- impulsive or combined type Benign essential hypertension with target blood pressure below 140/90 CAD (coronary artery disease) Cervical spine pain CHF (congestive heart failure) Chronic low back pain Chronic systolic heart failure CKD (chronic kidney disease) stage 3, GFR 30-59 ml/min COPD (chronic obstructive pulmonary disease) Dyslipidemia Dyslipidemia (high LDL; low HDL) Dysrhythmias Encounter for long-term opiate analgesic use Hypertension Long-term use of high-risk medication Mild neurocognitive disorder due to traumatic brain injury Near syncope Pain, joint, shoulder, left Pre-syncope Traumatic brain injury Type 2 diabetes mellitus with cardiac complication Ventricular arrhythmia Surgical History History of carpal tunnel release Left, 02/28/2019 Hx of coronary angioplasty S/P CABG (coronary artery bypass graft) S/P decompression of ulnar nerve at elbow 11/26/18 Dr. Neely-right elbow 02/28/2019 - left elbow S/P hemorrhoidectomy S/P inguinal hernia repair S/P PTCA (percutaneous transluminal coronary angioplasty) S/P tonsillectomy and adenoidectomy Status post lumbar laminectomy Family History Father Diabetes Mother Diabetes CAD (coronary artery disease) Lung disease Brother Diabetes Sister Diabetes Grandmother Dementia Other Chronic kidney disease (CKD) Hypertension Denies family history of Clotting disorder Suicide Anesthesia complication Bleeding disorder Cancer Stroke Social History Smoking and tobacco status: never smoked Second hand smoke exposure: No Alcohol intake: former Caregiver/support person: Yes Lives independently: Yes Household members: spouse Marital status: History of recent travel: No Physical Exam Const: COMMON NORMALS: no acute distress, patient oriented x3 and alert HENMT: COMMON NORMALS: normocephalic and external ears normal HEAD & SCALP: normocephalic EXTERNAL EAR: Yes external ears normal Eye: COMMON NORMALS: EOMs intact bilaterally Neck/C-Spine: COMMON NORMALS: no JVD Resp: COMMON NORMALS: normal respiratory effort and No use of accessory muscles Cardio: COMMON NORMALS: no JVD OTHER: Mild pitting edema to hands and feet. GI: INSPECTION: Yes normal to inspection Extremity: COMMON NORMALS: normal to inspection and full ROM Neuro: COMMON NORMALS: patient oriented x3 SENSORIUM/ORIENTATION: Yes alert Psych: COMMON NORMALS: mental status grossly normal Skin: COMMON NORMALS: no rashes or lesions noted GENERAL SKIN EXAM: no rashes or lesions noted Course Vital Signs: Vital signs: Vital Signs Temperature 98.1 F 04/29/21 11:04 Pulse Rate 74 04/29/21 11:04 Respiratory Rate 16 04/29/21 11:04 Blood Pressure 145/79 04/29/21 11:04 Pulse Oximetry 97 04/29/21 11:04 MDM - Extremity (Nontraumatic) Medical Decision Making I discussed case with Dr. Christian and Dr. Alexandra. Dr. Alexandra recommended 24- hour observation. Dr. Alexandra reviewed EKG. patient does not want to stay. Does not want to be admitted. Patient said he felt he got little anxious this morning when he woke up he is not had any shortness of breath since then no maurisio st pains or other problems. He which is more concerned about his swelling and having to be off his water pill. Asking to go home. Laboratory studies reviewed consistent with past labs he had done. Did advise patient and his follow-up Dr. Andres contact his office. Patient agrees to this. Patient will be discharged home. Lab Data : 04/29/21 14:46 Radiology Impressions Chest X-Ray 04/29/21 11:40 IMPRESSION: 1. No acute findings. 2. Status post sternotomy Laboratory Results Sodium 136 mmol/L (136-145) 04/29/21 14:46 Potassium 4.5 mmol/L (3.5-5.1) 04/29/21 14:46 Chloride 102 mmol/L (98-107) 04/29/21 14:46 Carbon Dioxide 23 mmol/L (22-29) 04/29/21 14:46 Anion Gap 15.5 (5-19) 04/29/21 14:46 BUN 35 mg/dL (8-23) H 04/29/21 14:46 Creatinine 1.8 mg/dL (0.7-1.2) H 04/29/21 14:46 GFR Calculation 37.7 mL/min (90-130) L 04/29/21 14:46 Glucose 211 mg/dL (65-115) H 04/29/21 14:46 Calculated Osmolality 296 mOsm/kg (285-295) H 04/29/21 14:46 Calcium 9.3 mg/dL (8.5-10.5) 04/29/21 14:46 Total Bilirubin 0.3 mg/dL (0.15-1.2) 04/29/21 14:46 AST 38 U/L (0-40) 04/29/21 14:46 ALT 44 U/L (0-41) H 04/29/21 14:46 Alkaline Phosphatase 99 IU/L (40-130) 04/29/21 14:46 Troponin T Baseline 60 ng/L (0-15) H 04/29/21 14:46 Total Protein 6.3 g/dL (6.6-8.7) L 04/29/21 14:46 Albumin 3.6 g/dL (3.5-5.2) 04/29/21 14:46 Globulin 2.7 g/dL (1.3-4.6) 04/29/21 14:46 Urine Color Yellow (Yellow) 04/29/21 13:52 Urine Appearance Clear (CLEAR) 04/29/21 13:52 Urine pH 5 (5-7) 04/29/21 13:52 Ur Specific Melissa 1.020 (1.005-1.030) 04/29/21 13:52 Urine Protein 1+ (Negative) H 04/29/21 13:52 Urine Glucose (UA) 2+ (Normal) H 04/29/21 13:52 Urine Ketones Negative (Negative) 04/29/21 13:52 Urine Blood Neg (Negative) 04/29/21 13:52 Urine Nitrate Negative (Negative) 04/29/21 13:52 Urine Bilirubin Neg (Negative) 04/29/21 13:52 Urine Urobilinogen Norm mg/dL (Negative) 04/29/21 13:52 Ur Leukocyte Esterase Negative (Negative) 04/29/21 13:52 Urine RBC None /hpf (0-2) 04/29/21 13:52 Urine WBC None /hpf (0-5) 04/29/21 13:52 Ur Squamous Epith Cells None /hpf (0-5) 04/29/21 13:52 Amorphous Sediment Not Reportable 04/29/21 13:52 Urine Bacteria Trace /hpf (NONE) 04/29/21 13:52 Discharge Plan Discharge Condition: Stable Prescriptions: No Action insulin aspart U-100 [Novolog U-100 Insulin aspart] 100 unit/mL solution 10 unit SUBCUT .ss 0RF Rx Instructions: sliding scale hydrocodone-acetaminophen 10-325 mg tablet 1 tab PO Q8H PRN (Reason: pain) 30 Days Qty: 90 0RF Rx Instructions: fill on or after 02/19/21 hydrocodone-acetaminophen 10-325 mg tablet 1 tab PO TID PRN (Reason: pain) 30 Days Qty: 90 0RF Rx Instructions: fill on or after 03/21/21 baclofen 10 mg tablet 10 mg PO TID PRN (Reason: back pain) Qty: 90 0RF cholecalciferol (vitamin D3) 10,000 unit tablet 3,000 unit PO DAILY 0RF omega-3 fatty acids 1,000 mg capsule 1,000 mg PO BID 0RF Ultra CoQ10 75 mg capsule 100 mg PO DAILY 0RF clopidogrel 75 mg tablet 75 mg PO DAILY 0RF Hold Instructions: Resume on 03/02/19. All Day Allergy (cetirizine) 10 mg capsule 10 mg PO DAILY PRN (Reason: Allergic Reaction) 0RF allopurinol 300 mg tablet 300 mg PO DAILY 0RF aspirin 81 mg tablet,delayed release (DR/EC) 81 mg PO DAILY 0RF atorvastatin 20 mg tablet 20 mg PO DAILY 0RF ferrous sulfate [FeroSul] 325 mg (65 mg iron) tablet 325 mg PO DAILY 0RF amphetamine sulfate 20 mg tablet,disintegrating 20 mg PO DAILY 0RF Rx Instructions: administer doses 4-6 hours apart gabapentin 100 mg capsule 100 mg PO TID 90 Days Qty: 270 1RF diclofenac sodium 1 % gel 4 g topical QID Qty: 400 1RF Rx Instructions: apply to single knee, ankle, foot; for foot includes sole/toes/top of foot donepezil 10 mg tablet 10 mg PO DAILY Qty: 30 5RF Lantus Solostar U-100 Insulin 100 unit/mL (3 mL) insulin pen 50 unit SUBCUT BID Qty: 15 3RF (DME) Dexcom G6 Transmitter Device See Rx Instructions .Route Qty: 1 3RF Rx Instructions: Change every 90 days (DME) Dexcom G6 Sensor Device See Rx Instructions .Route Qty: 9 3RF Rx Instructions: Change every 10 days. amlodipine 2.5 mg tablet 5 mg PO DAILY Qty: 180 3RF furosemide 20 mg tablet 20 mg PO DAILY PRN (Reason: edema) Qty: 30 3RF nitroglycerin 0.4 mg Tablet, Sublingual 0.4 mg sublingual Q5M PRN (Reason: Chest Pain) Qty: 20 0RF metoprolol tartrate 25 mg Tablet 12.5 mg PO Q12H Qty: 30 0RF naloxone 4 mg/actuation spray,non-aerosol 1 spray intranasal Q2M PRN (Reason: opioid overdose) Qty: 2 0RF Rx Instructions: spray 1 dose into ONE nostril; alternate nostrils w each dose until help arri ves Referrals: Crystal Miller MD [Primary Care Provider] - Coding Level of Care Code ED Accounts Payable Bookkeeper for Chg Fwd Exam Comprehensive
[2021-04-29 14:26] LABS: Protein Urine 1+ (Negative); Urine Appearance Clear (CLEAR); Urine Color Yellow (Yellow); pH Urine 5 (5-7)
[2021-04-29 14:27] LABS: Add Urine Microscopic? YES; Bacteria Urine TRACE /hpf; Bilirubin Urine Neg (Negative); Blood Urine Neg (Negative); Glucose Urine UA 2+ (Normal); Ketones Urine Negative (Negative); Leukocyte Esterase Urine Negative (Negative); Nitrate Urine Negative (Negative); Urobilinogen Urine Norm (Negative)
[2021-04-29 15:32] LABS: Alanine Aminotransferase 44 U/L (0-41); Albumin Level 3.6 g/dL (3.5-5.2); Alkaline Phosphatase 99 IU/L (40-130); Anion Gap 15.5 (5-19); Aspartate Amino Transferase 38 U/L (0-40); Blood Urea Nitrogen 35 mg/dL (8-23); Calcium 9.3 mg/dL (8.5-10.5); Carbon Dioxide 23 mmol/L (22-29); Chloride 102 mmol/L (98-107); Globulin 2.7 g/dL (1.3-4.6); Glomerular Filtration Rate 37.7 mL/min (90-130); Glucose 211 mg/dL (65-115); Osmolality Calculated 296 mOsm/kg (285-295); Potassium 4.5 mmol/L (3.5-5.1); Sodium 136 mmol/L (136-145); Total Bilirubin 0.3 mg/dL (0.15-1.2); Total Protein 6.3 g/dL (6.6-8.7)
[2021-04-29 15:35] LABS: Troponin(5th) Baseline 60 ng/L (0-15)
[2021-04-29 16:17] LABS: NT Pro B Type Natriuretic Pept 679 pg/mL (0-125)
== END 2021-04-29 16:33 | disposition home or self-care (01) ==
PROVIDERS: Emergency Provider Nurse Practitioner Family; PCP Family Medicine
DX: R60.0 Localized edema (principal); Z79.02 Long term (current) use of antithrombotics/antiplatelets; Z79.82 Long term (current) use of aspirin; Z79.4 Long term (current) use of insulin; I25.10 Atherosclerotic heart disease of native coronary artery without angina pectoris; I13.0 Hypertensive heart and chronic kidney disease with heart failure and stage 1 through stage 4 chronic kidney disease, or unspecified chronic kidney disease; E11.22 Type 2 diabetes mellitus with diabetic chronic kidney disease; N18.30 Chronic kidney disease, stage 3 unspecified; I50.9 Heart failure, unspecified; J44.9 Chronic obstructive pulmonary disease, unspecified; E78.5 Hyperlipidemia, unspecified; Z95.1 Presence of aortocoronary bypass graft; Z98.61 Coronary angioplasty status
CPT/HCPCS: 71045; 80053; 81001; 83880; 84484; 93005; 99282

== ENCOUNTER → 2021-06-09 10:48 | Outpatient (BNVA) | payer OTHER, SELFPAY | PROVIDERS: PCP Family Medicine; Visit Provider Surgery | DX: Z86.010 Personal history of colon polyps (principal) | CPT/HCPCS: 99213 ==

== ENCOUNTER → 2021-07-26 13:08 | Outpatient (BNVA) | payer OTHER, SELFPAY | PROVIDERS: PCP Family Medicine; Visit Provider Internal Medicine | DX: E11.42 Type 2 diabetes mellitus with diabetic polyneuropathy (principal); E11.65 Type 2 diabetes mellitus with hyperglycemia; E11.59 Type 2 diabetes mellitus with other circulatory complications; E11.649 Type 2 diabetes mellitus with hypoglycemia without coma; E11.22 Type 2 diabetes mellitus with diabetic chronic kidney disease; N18.31 Chronic kidney disease, stage 3a; E16.0 Drug-induced hypoglycemia without coma; E03.8 Other specified hypothyroidism; E78.5 Hyperlipidemia, unspecified; I25.10 Atherosclerotic heart disease of native coronary artery without angina pectoris; T38.3X5A Adverse effect of insulin and oral hypoglycemic [antidiabetic] drugs, initial encounter; Z79.4 Long term (current) use of insulin | CPT/HCPCS: 99214 ==

== ENCOUNTER 2021-08-12 08:26 | Day surgery (SDC) | payer OTHER, SELFPAY ==
[2021-08-10 09:53] VITALS: BMI 30.7
[2021-08-12 08:47] VITALS: BP 137/87; PULSE 63; RESP 18; TEMP 35.8; O2SAT 99
[2021-08-12] MEDS: sodium chloride 0.9% 1,000 ML 30 ML IV (08:58)
--- NOTE | 2021-08-12 09:00 | ECG_ITS ---
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 Measurements Intervals [place] Rate: 53 P: 85 SC: 230 QRS: -31 QRSD: 109 T: 97 QT: 435 QTc: 409 Interpretive Statements SINUS BRADYCARDIA WITH FIRST DEGREE AV BLOCK WITH OCCASIONAL SUPRAVENTRICULAR PREMATURE COMPLEXES LEFT AXIS DEVIATION [QRS AXIS < -30] POSSIBLE LEFT VENTRICULAR HYPERTROPHY [VOLTAGE CRITERIA PLUS LAE OR QRS WIDENING] MODERATE T-WAVE ABNORMALITY, CONSIDER LATERAL ISCHEMIA [-0.1+ mV T-WAVE IN I/aVL/V5/V6] Compared to ECG 04/29/2021 13:51:16 First degree AV block now present Left-axis deviation now present Possible ischemia now present T-wave abnormality still present Electronically Signed On 08-12-2021 19:00:59 CDT by Francesco Alexandra M.D. [id number]
--- NOTE | 2021-08-12 09:31 | P.HP_ITS ---
Same Day Surgery H&P Indication for Procedure/HPI DATE OF PROCEDURE: August 12, 2021 CHIEF COMPLAINT/INDICATIONFOR SURGICAL PROCEDURE: Colon polyps PREOP DIAGNOSIS: History of colon polyps PLANNED PROCEDURE: Operation Date: 08/12/21 09:45 Proposed Procedures p Colonoscopy 15575/[id number](Not Applicable) - Noam Malin MD 06/09/2021 This is 66 years old gentleman with history of colon polyps.? An attempted colonoscopy by me was done back in 2019 and patient was supposed to get one repeated in 6 months to 1 year due to inadequate colon prep but unfortunately that did not take place.? She is referred to me today for consideration of surveillance colonoscopy.? He denies bleeding per rectum or history of colon cancer or nonintentional weight loss.? Comes today escorted by his . 08/12/2021 Patient comes today for surveillance colonoscopy ROS All systems have been reviewed negative except as for the above or per problem list. Medications/Allergies* Home Medications Medication Instructions Recorded Confirmed Type cetirizine 10 mg capsule (All Day 10 mg PO DAILY PRN cap 02/07/19 08/12/21 History Allergy (cetirizine)) cholecalciferol (vitamin D3) 250 3,000 unit PO DAILY 02/07/19 08/12/21 History mcg (10,000 unit) tablet clopidogrel 75 mg tablet 75 mg PO DAILY 02/07/19 08/10/21 History coenzyme Q10 75 mg capsule (Ultra 100 mg PO DAILY 02/07/19 08/12/21 History CoQ10) omega-3 fatty acids 1,000 mg 1,000 mg PO BID 02/07/19 08/12/21 History capsule allopurinol 300 mg tablet 300 mg PO DAILY tab 11/06/19 08/12/21 History aspirin 81 mg tablet,delayed 81 mg PO DAILY tab 11/06/19 08/12/21 History release atorvastatin 20 mg tablet 20 mg PO DAILY tab 11/06/19 08/12/21 History ferrous sulfate 325 mg (65 mg 325 mg PO DAILY tab 11/06/19 08/12/21 History iron) tablet (FeroSul) insulin aspart U-100 100 unit/mL 10 unit SUBCUT .ss ml 07/21/20 08/12/21 History subcutaneous solution (Novolog U-100 Insulin aspart) amphetamine sulfate 20 mg 20 mg PO DAILY tab 01/26/21 08/12/21 History disintegrating tablet Allergies/Adverse Reactions Allergy/AdvReac Type Severity Reaction Status Date / Time cedar leaf AdvReac Unknown Unknown Verified 08/12/21 09:32 Current Medications: Generic Name Dose Route Start Last Admin Trade Name Freq PRN Reason Stop Dose Admin Sodium Chloride 1,000 mls @ 30 mls/hr 08/12/21 08:45 08/12/21 08:58 Sodium Chloride 0.9% IV 08/13/21 08:44 30 mls/hr .Q24H VELMA Administration Pertinent History/Comorbid Conditions* Medical History (Updated 07/30/21 @ 18:11 by Max Palomino MD) Acute on chronic combined systolic and diastolic CHF, NYHA class 2 Atherosclerosis of coronary artery of [place] heart without angina pectoris Attention deficit hyperactivity disorder (ADHD), predominantly hyperactive- impulsive or combined type Benign essential hypertension with target blood pressure below 140/90 CAD (coronary artery disease) Cervical spine pain CHF (congestive heart failure) Chronic low back pain Chronic systolic heart failure CKD (chronic kidney disease) stage 3, GFR 30-59 ml/min COPD (chronic obstructive pulmonary disease) Dyslipidemia Dyslipidemia (high LDL; low HDL) Dysrhythmias Encounter for long-term opiate analgesic use History of colonic polyps Hypertension Long-term use of high-risk medication Mild neurocognitive disorder due to traumatic brain injury Near syncope Pain, joint, shoulder, left Pre-syncope Traumatic brain injury Type 2 diabetes mellitus with cardiac complication Ventricular arrhythmia Surgical History (Updated 03/08/21 @ 15:17 by Sherie Butler DO) History of carpal tunnel release Left, 02/28/2019 Hx of coronary angioplasty S/P CABG (coronary artery bypass graft) S/P decompression of ulnar nerve at elbow 11/26/18 Dr. Neely-right elbow 02/28/2019 - left elbow S/P hemorrhoidectomy S/P inguinal hernia repair S/P PTCA (percutaneous transluminal coronary angioplasty) S/P tonsillectomy and adenoidectomy Status post lumbar laminectomy Family History (Updated 07/21/20 @ 14:00 by Estefania Dave RN) Diabetes Father Mother Brother Sister CAD (coronary artery disease) Mother Dementia Grandmother Chronic kidney disease (CKD) Lung disease Mother Hypertension Denies family history of Clotting disorder Suicide Anesthesia complication Bleeding disorder Cancer Stroke Social History Smoking and tobacco status: never smoked Second hand smoke exposure: No Alcohol intake: former Caregiver/support person: Yes Lives independently: Yes Household members: spouse Marital status: History of recent travel: No Pertinent Exam Findings alert, oriented x 3, regular rate & rhythm and procedure specific exam findings (Abdominal exam nontender nondistended soft) Recommendations Surgery/Procedure today (Colonoscopy with possible biopsy) Coding Level of Care Code Acute 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
--- NOTE | 2021-08-12 09:32 | P.ANESASSM_ITS ---
Pre-Anesthetic Assessment Height/Weight: Height 1.8 m Weight 99.79 kg Temp Pulse Resp BP Pulse Ox 96.5 F L 63 18 137/87 99 08/12/21 08:47 08/12/21 08:47 08/12/21 08:47 08/12/21 08:47 08/12/21 08:47 Preop Diagnosis: History of colon polyps Operation Date: 08/12/21 09:45 Proposed Procedures p Colonoscopy 00577/[id number](Not Applicable) - Noam Malin MD Familial anesthetic complications: none Was Beta Rahul taken within 24 hours: Yes Was Clonidine taken within 24 hours: N/A Last intake: Intake Last Liquid Date 08/11/21 Last Liquid Time 00:00 Last Solid Date 08/10/21 Last Solid Time 00:00 Social No alcohol and No tobacco Exam alert, oriented x 3, clear to auscultation bilaterally and regular rate & rhythm Systolic ejection murmur Airway Submandibular: Other (< 2 finger breadths ) Cervical ROM: within normal limits Mallampati: Class II Dentition: chipped Pulmonary Chronic Obstructive Pulmonary Disease CV/HEM Arrythmia (PVCs ), Coronary Artery Disease (Hx of coronary angioplasty ), Congestive Heart Failure (Hx of CA stents ), Hypertension and Murmur ( Moderate ) s/p CABG METS > 4 Holter from cardiology note 10/26/20 Event Monitor 1.? The baseline rhythm was found to be sinus bradycardia with frequent PVCs in the form of isolated beats, bigeminy's, couplets and rare short runs of nonsustained ventricular tachycardia's.? The ventricular ectopics were comprising 28% of the total heartbeats.? The supra ventricular ectopics comprised 4% of the total heartbeats. 2.? The above-mentioned symptoms were found to be mostly associated with the ventricular ectopics and occasional supraventricular ectopics. 3.? No previous similar studies, available for comparison TTE 11/2020 CONCLUSIONS ?Normal LV size with ejection fraction of 55 to 60%. ?Wall motion normalities as mentioned above. ? Moderate concentric left ventricular hypertrophy ?Type II diastolic dysfunction. ?Moderate aortic valve stenosis, mean gradient 14.1 mmHg, HEBER ?1.19 cm squared. ?Thickened mitral valve. Mild mitral valve regurgitation. ?There is no pericardial effusion. ?There are no intracardiac masses. ?Compared to the study from my 10/19/2017, there may not be a ?significant change laboratory immunologist report 12/03 Conclusions ? 1. Patient has prior CABG. ? 2. 65-year-old white male with history of coronary disease, status post coronary artery bypass surgery, status post PCI, is presenting with increasing episodes of chest pain.? He had a myocardial perfusion imaging which revealed elevated transient ischemic dilatation ratio.? Because of the patient's ongoing symptoms with recent worsening, in order to further evaluate his coronary status as well as the graft status, a cardiac catheterization was recommended.? Patient underwent left heart catheterization with left and right coronary angiogram today. The findings are as follows. ? 3. Total occlusion of the mid LAD, circumflex and right coronary artery. Patent LAW to the LAD, venous graft to the obtuse marginal artery and venous graft to the PLV branch of the right coronary artery.? High-grade stenosis in the stented segment of the first diagonal artery.? LVEDP of 21 mmHg. ? 4. I reviewed and discussed the cardiac resident data with the Dr. Alexandra. It was thought to be appropriate to consider PCI of the in-stent stenosis in the first diagonal branch of the left anterior descending artery.? At this point, Dr. Alexandra took over further management of this patient. ? 5. Successful revascularization of diagonal artery with balloon angioplasty. ? 6. 1st Diagonal was treated with a Balloon. Nuc Med study 11/2020 ?IMPRESSIONS ?1. Myocardial perfusion imaging revealing patchy areas of persistent decreased ?tracer uptake in the inferior wall and apical regions suggestive of myocardial ?scarring versus attenuation artifacts. ?2. Normal LV ejection fraction 56%. ?3. LV wall motion analysis revealing no gross wall motion abnormalities. ?4. Mildly increased LV volume, end-systolic volume of 51 mL ?Minimally increased transient ischemic dilatation ratio of 1.14 may suggest ?endocardial ischemia. But the positive predictive value of this finding is ?limited ?Compared to the study from 08/15/2018, the left ventricular ejection fraction has ?improved. EKG 08/12/21 ? Interpretive Statements SINUS BRADYCARDIA WITH FIRST DEGREE AV BLOCK WITH OCCASIONAL SUPRAVENTRICULAR PREMATURE COMPLEXES LEFT AXIS DEVIATION? [QRS AXIS < -30] POSSIBLE LEFT VENTRICULAR HYPERTROPHY? [VOLTAGE CRITERIA PLUS LAE OR QRS WIDENING] MODERATE T-WAVE ABNORMALITY, CONSIDER LATERAL ISCHEMIA? [-0.1+ mV T-WAVE IN I/aVL/V5/V6] Compared to ECG 04/29/2021 13:51:16 First degree AV block now present Left-axis deviation now present Possible ischemia now present T-wave abnormality still present [email or web address] Chronic Renal Insufficiency GI Gastroesophageal Reflux Disease (Well controlled ) Metabolic Diabetes Mellitus and Thyroid Disease Musc/skel Lower Back Pain Neuropsych Headache Hx of TBI Denies stroke or seizure Hx of near syncope Anesthetic Plan ASA status: 3 Anesthesia: Anesthesia Evaluation, General and MAC Other: I discussed with the patient risks, goals, and benefits of MAC and general anesthesia. We discussed spectrum of MAC anesthesia including conversion to general as well as possibility of recall of intraoperative stimuli including discomfort/pain. Patient agrees to proceed with MAC. Risk of > 500 ml blood loss (7ml/kg in children): No Medications/Allergies Home Medications Medication Instructions Recorded Confirmed Last Taken Type cetirizine 10 mg capsule (All Day 10 mg PO DAILY PRN cap 02/07/19 08/12/21 08/11/21 History Allergy (cetirizine)) cholecalciferol (vitamin D3) 250 3,000 unit PO DAILY 02/07/19 08/12/21 08/11/21 History mcg (10,000 unit) tablet clopidogrel 75 mg tablet 75 mg PO DAILY 02/07/19 08/10/21 07/27/21 History coenzyme Q10 75 mg capsule (Ultra 100 mg PO DAILY 02/07/19 08/12/21 08/11/21 History CoQ10) omega-3 fatty acids 1,000 mg 1,000 mg PO BID 02/07/19 08/12/21 08/11/21 History capsule allopurinol 300 mg tablet 300 mg PO DAILY tab 11/06/19 08/12/21 08/11/21 History aspirin 81 mg tablet,delayed 81 mg PO DAILY tab 11/06/19 08/12/21 08/09/21 History release atorvastatin 20 mg tablet 20 mg PO DAILY tab 11/06/19 08/12/21 08/11/21 History ferrous sulfate 325 mg (65 mg 325 mg PO DAILY tab 11/06/19 08/12/21 08/11/21 History iron) tablet (FeroSul) donepezil 10 mg tablet 10 mg PO DAILY #30 tab 02/03/20 08/12/21 08/11/21 Rx insulin aspart U-100 100 unit/mL 10 unit SUBCUT .ss ml 07/21/20 08/12/21 08/11/21 History subcutaneous solution (Novolog U-100 Insulin aspart) diclofenac sodium 1 % topical gel 4 g TOPICAL QID #400 g 11/19/20 08/12/21 08/10/21 Rx gabapentin 100 mg capsule 100 mg PO TID 90 Days #270 cap 11/19/20 08/12/21 08/12/21 Rx metoprolol tartrate 25 mg tablet 12.5 mg PO Q12H #30 tab 11/24/20 08/12/21 08/12/21 Rx naloxone 4 mg/actuation nasal spray 1 spray INTRANASAL Q2M PRN #2 ea 11/24/20 08/12/21 Unknown Rx nitroglycerin 0.4 mg sublingual 0.4 mg SUBLINGUAL Q5M PRN #20 tab 11/24/20 08/12/21 Unknown Rx tablet amphetamine sulfate 20 mg 20 mg PO DAILY tab 01/26/21 08/12/21 08/11/21 History disintegrating tablet insulin glargine 100 unit/mL (3 50 unit (0.5 mL) SUBCUT BID #15 ml 02/09/21 08/12/21 08/11/21 Rx mL) subcutaneous pen (Lantus Solostar U-100 Insulin) hydrocodone 10 mg-acetaminophen 1 tab PO Q8H PRN 30 Days #90 tab 02/10/21 08/12/21 08/12/21 Rx 325 mg tablet blood-glucose sensor (Dexcom G6 #9 ea 03/15/21 07/26/21 Unknown Rx Sensor) blood-glucose transmitter (Dexcom #1 ea 03/15/21 07/26/21 Unknown Rx G6 Transmitter) baclofen 10 mg tablet 10 mg PO TID PRN #90 tab 04/05/21 08/12/21 08/11/21 Rx furosemide 20 mg tablet 20 mg PO DAILY PRN #30 tab 04/19/21 08/12/21 08/11/21 Rx lactulose 10 gram/15 mL oral 15 ml PO BID 7 Days #210 ml 06/09/21 08/12/21 08/11/21 Rx solution Allergies Allergy/AdvReac Type Severity Reaction Status Date / Time cedar leaf AdvReac Unknown Unknown Verified 08/12/21 09:32 Current Medications Generic Name Dose Route Start Last Admin Trade Name Jacob PRN Reason Stop Dose Admin Sodium Chloride 1,000 mls @ 30 mls/hr 08/12/21 08:45 08/12/21 08:58 Sodium Chloride 0.9% IV 08/13/21 08:44 30 mls/hr .Q24H VELMA Administration PFSH Anesthesia Medical History Acute on chronic combined systolic and diastolic CHF, NYHA class 2 Atherosclerosis of coronary artery of [place] heart without angina pectoris Attention deficit hyperactivity disorder (ADHD), predominantly hyperactive- impulsive or combined type Benign essential hypertension with target blood pressure below 140/90 CAD (coronary artery disease) Cervical spine pain CHF (congestive heart failure) Chronic low back pain Chronic systolic heart failure CKD (chronic kidney disease) stage 3, GFR 30-59 ml/min COPD (chronic obstructive pulmonary disease) Dyslipidemia Dyslipidemia (high LDL; low HDL) Dysrhythmias Encounter for long-term opiate analgesic use History of colonic polyps Hypertension Long-term use of high-risk medication Mild neurocognitive disorder due to traumatic brain injury Near syncope Pain, joint, shoulder, left Pre-syncope Traumatic brain injury Type 2 diabetes mellitus with cardiac complication Ventricular arrhythmia Surgical History History of carpal tunnel release Left, 02/28/2019 Hx of coronary angioplasty S/P CABG (coronary artery bypass graft) S/P decompression of ulnar nerve at elbow 11/26/18 Dr. Neely-right elbow 02/28/2019 - left elbow S/P hemorrhoidectomy S/P inguinal hernia repair S/P PTCA (percutaneous transluminal coronary angioplasty) S/P tonsillectomy and adenoidectomy Status post lumbar laminectomy Family History Father Diabetes Mother Diabetes CAD (coronary artery disease) Lung disease Brother Diabetes Sister Diabetes Grandmother Dementia Other Chronic kidney disease (CKD) Hypertension Denies family history of Clotting disorder Suicide Anesthesia complication Bleeding disorder Cancer Stroke Social History Smoking and tobacco status: never smoked Second hand smoke exposure: No Alcohol intake: former Caregiver/support person: Yes Lives independently: Yes Household members: spouse Marital status: History of recent travel: No Data Anesthesia Cardiac Studies: Echocardiogram 11/24/20 Sestamibi Stress Test (Cardiology) 11/24/20 Cardiac Event Monitor 10/26/20 Holter Monitor 05/24/19
[2021-08-12 10:01] VITALS: BP 131/74; PULSE 50; RESP 16; TEMP 36.1; O2SAT 100
--- NOTE | 2021-08-12 10:04 | ANE.PACU2 ---
Documented by User: Mirtha Carbajal CRNA 08/12/21 10:05 Inpatient post-anesthesia follow up: Airway intact: Yes Vital signs: Temperature 96.5 F Pulse Rate 63 Respiratory Rate 18 Blood Pressure 137/87 Pulse Oximetry 99 Oxygen Delivery Me thod Room Air Oxygen Flow Rate Fraction of Inspir ed Oxygen Hydration adequate: Yes Nausea and vomiting: No Pain level: 1 Mental status: Baseline
[2021-08-12 10:06] VITALS: BP 134/72; PULSE 51; RESP 16; O2SAT 100
[2021-08-12 10:16] VITALS: BP 133/68; PULSE 49; RESP 18; O2SAT 99
== END 2021-08-12 10:38 | disposition home or self-care (01) ==
PROVIDERS: PCP Family Medicine; Visit Provider Surgery
PROC: 0DJD8ZZ Inspection of Lower Intestinal Tract, Via Natural or Artificial Opening Endoscopic (ICD-10-PCS; CPT 45378; principal; 2021-08-12 09:45)
DX: Z86.010 Personal history of colon polyps (principal); K57.30 Diverticulosis of large intestine without perforation or abscess without bleeding; D12.2 Benign neoplasm of ascending colon; D12.4 Benign neoplasm of descending colon; J44.9 Chronic obstructive pulmonary disease, unspecified; I25.10 Atherosclerotic heart disease of native coronary artery without angina pectoris; I50.9 Heart failure, unspecified; I11.0 Hypertensive heart disease with heart failure; Z95.5 Presence of coronary angioplasty implant and graft; Z95.1 Presence of aortocoronary bypass graft; K21.9 Gastro-esophageal reflux disease without esophagitis; E11.9 Type 2 diabetes mellitus without complications; Z79.4 Long term (current) use of insulin
CPT/HCPCS: 45385; 88305; 93005; J2704; J7030

== ENCOUNTER → 2021-08-25 12:59 | Outpatient (BNVA) | payer OTHER, SELFPAY | PROVIDERS: PCP Family Medicine; Referring Provider Family Medicine; Visit Provider Nurse Practitioner | DX: R41.89 Other symptoms and signs involving cognitive functions and awareness (principal) | CPT/HCPCS: 80053; 82607; 84402; 84403; 84443; 85025; 99213; 99214 ==